=== PATIENT | female | born 1980 | race Caucasian/White ===

== ENCOUNTER 2019-11-17 09:46 | Emergency (ER) | payer SELFPAY ==
[2019-11-17 09:49] VITALS: BP 133/81; PULSE 87; RESP 20; TEMP 36.1; O2SAT 100
--- NOTE | 2019-11-17 10:51 | ED.GENADUL_ITS ---
Discharge Plan Disposition Patient Disposition: HOME Condition: Stable Discharge Details Chief Complaint: EyeProblem Clinical Impression: Allergic reaction Primary Care Provider: May Zavala ED Provider: Elizabeth Irizarry Home Meds and New Rx's Prescriptions: New prednisone 20 mg tablet 40 mg PO DAILY Qty: 10 RF: 0 No Action albuterol sulfate [ProAir HFA] 8.5 GM HFA aerosol inhaler 2 puff Inhalation PRN PRNRF: 0 dextroamphetamine-amphetamine [Adderall] 5 MG tablet 15 mg PO BID RF: 0 diphenhydramine HCl [Benadryl] 25 mg Capsule 25 mg PO Q6H PRNRF: 0 Discharge Instructions Instructions: General Allergic Reaction (ED) Additional Instructions: Frequently apply cool compresses or ice packs to your right eye. Continue Benadryl every 6 hours as discussed. Use steroids as discussed for the next 5 days. Keep head of bed elevated when sleeping to minimize swelling as discussed For any increase in swelling, development of any pain, development of any vision changes or blurred vision, purulent drainage from the eye or worsening symptoms have immediate return to the emergency room for consideration of antibiotics and further imaging. Call PCP for prompt recheck Return to the ER if symptoms persist without improvement for greater than 2 to 3 days Return for any worsening or concerns if needed sooner Medical Decision Making This is a 38-year-old patient who presents for right eye swelling. Patient reports onset of eyelid swelling noted yesterday which worsened today. Patient reports diffuse itching of the eyelids. She suspected a bug bite. Did start Benadryl yesterday with no significant relief. Did raise head of bed. Does report persistent swelling, itching and tearing. Denies any eye pain. See HPI for the remainder of details. Atraumatic Clinically patient appears to have diffuse eyelid swelling of both upper and lower lids of the right eye. Patient's conjunctiva appears normal. Patient has clear drainage from the eye. Patient has mild photophobia on exam which she reports is her baseline and unchanged. Patient has no pain with extraocular movements. Given patient's history and exam I suspect she has a local allergic reaction. Patient does have a chronic right ear infection however it does not seem that this chronic ear infection is not any worse at this time. She has no significant mastoiditis at this time. I do not feel these are communicating or related issues. Dr. Deleon also evaluated and saw this patient. Does not feel patient needs acute imaging at this time rather recommends treat for allergy. Strict return precautions. Inconsistent with orbital cellulitis at this time. Given patient's presentation will plan to treat appropriate for allergy in addition to ice packs, head of bed elevation and Benadryl will add prednisone x5 days. Strict precautions were discussed. Any alarming symptoms patient recommended return for more advanced imaging as well as antibiotic administration. Patient agrees with this plan of care. Her symptoms at this time are inconsistent with orbital cellulitis. No red flags at this time. We will plan to treat for allergy and return for worsening. Patient agrees. The patient was stable and requested discharge. Prior to discharge, my usual and customary return precautions were reviewed with the patient - this included follow-up instructions and reasons to return to the Emergency Department if conditions worsens, does not improve as expected, or other new concerns arise. HPI General Date/Time Provider Initiated Documentation: 11/17/19 09:54 . HPI Narrative: Is a 38-year-old patient presenting the emergency room for complaints of right eye swelling. Patient reports yesterday she noted an area on her upper eyelid that began swelling and was quite itchy. Patient suspected an insect bite. Patient reports today she awoke with increase in swelling of both the upper and lower lids. Patient reports she had been taking Benadryl with no significant relief. She had tried cool compresses with no significant relief. Patient describes itching to the eyelids. Does report tearing but no substantial eye pain. Denies any purulent drainage. Patient denies any fevers, chills, nausea, vomiting. No headache or dizziness. No systemic ill feeling. Patient denies any vision change, blurred vision or double vision. Mild light sensitivity noted at a baseline, seems unchanged. Patient denies any injury or trauma to the eye. No history of similar. Patient denies any other concerns or complaints. 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 Patient reports she has seen ENT for her ear abnormalities and require surgery which she has put off for approximately 10 years. Patient reports her ear seems unchanged. Patient does report mild swelling near the angle of her jaw. Able to eat and drink without difficulty. No sore throat. Denies any respiratory symptoms. No difficulty breathing or shortness of breath or wheezing. Negative Covid screening. Related Data Home Medications Medication Instructions Recorded Confirmed albuterol sulfate [ProAir HFA] 2 puff INHALATION PRN PRN 05/20/14 11/17/19 dextroamphetamine-amphetamine 15 mg PO BID 10/23/17 11/17/19 [Adderall] diphenhydramine HCl [Benadryl] 25 mg PO Q6H PRN 11/17/19 11/17/19 prednisone 40 mg PO DAILY #10 tab 11/17/19 Previous Rx's Medication Instructions Recorded prednisone 40 mg PO DAILY #10 tab 11/17/19 Allergies Allergy/AdvReac Type Severity Reaction Status Date / Time egg Allergy Intermediate Hives Unverified 11/17/19 09:53 General Stated Complaint: EyeProblem GIRMA: 4 Review of Systems All systems reviewed & are unremarkable except as noted in HPI and below PFSH Social History Smoking/Tobacco Use Status: Current every day Tobacco Type: cigarettes Alcohol Intake: current Alcohol Intake frequency: 3 or more drinks per day Drug use: Socially Substance use type: marijuana Do you feel safe at home: Yes Do you feel safe in your relationship?: Yes Exam Narrative Exam Narrative: CONST: Healthy appearing patient, in no acute distress. Well hydrated. Alert and oriented. HENMT: Head nomocephalic, normal to inspection. Atraumatic. Hearing grossly normal. Chronic right TM drainage. No obvious mastoiditis. No tenderness surrounding the ear. No trismus. EYES: General normal appearance. Alignment normal. Eyelids diffuse edematous, mild erythema. No lesions focally. Conjunctiva normal. Tearing. No purulent drainage. PERRLA with mild light sensitivity. No pain with extraocular movements. Extraocular movements are intact. Visual acuityL 20/30, R 20/20. NECK: Normal visual inspection. FROM. Trachea midline. No Midline tenderness. No lymphadenopathy CHEST: Normal insepection of the chest. RESP: Normal respiratory effort. Speaking full sentences. No cough. No audible wheezing. No retractions. CARDIO: No JVD. MUSCULOSKELETAL: Normal Gait. FROM of all extremities. SKIN: Normal. Dry. No rashes. NEURO: Alert and awake. Speech clear. PSYCH: Normal affect. Cooperative. Course Vital Signs Vital signs: Vital Signs Temperature 36.1 C L 11/17/19 09:49 Pulse 87 11/17/19 09:49 Respiratory Rate 20 11/17/19 09:49 Blood Pressure 133/81 11/17/19 09:49 Pulse Oximetry 100 11/17/19 09:49 Temperature 36.1 C L 11/17/19 09:49 Temperature Source Skin 11/17/19 09:49 Pulse 87 11/17/19 09:49 Respiratory Rate 20 11/17/19 09:49 Respiratory Effort Non-Labored 11/17/19 09:54 Blood Pressure 133/81 11/17/19 09:49 Blood Pressure Position Sitting 11/17/19 09:49 Pulse Oximetry 100 11/17/19 09:49 Oxygen Delivery Method Room Air 11/17/19 09:49 Oxygen Flow Rate 0 11/17/19 09:49
[2019-11-17 10:59] VITALS: BP 149/100; PULSE 90; RESP 18; TEMP 36.6; O2SAT 98
== END 2019-11-17 10:58 | disposition home or self-care (01) ==
PROVIDERS: Emergency Provider Physician Assistant; PCP Nurse Practitioner Family
DX: H02.844 Edema of left upper eyelid (principal); H02.845 Edema of left lower eyelid; T78.40XA Allergy, unspecified, initial encounter
CPT/HCPCS: 99283

== ENCOUNTER 2023-03-13 11:43 | Emergency (ER) | payer MEDICAID, SELFPAY ==
[2023-03-13 11:47] VITALS: BP 189/137; PULSE 120; RESP 20; TEMP 37; O2SAT 99
--- NOTE | 2023-03-13 12:14 | DI.US_ITS ---
Exam(s) US ABDOMEN LIMITED EXAM: US ABDOMEN LIMITED CLINICAL HISTORY: RUQ pain TECHNIQUE: Ultrasound abdomen performed using standard protocol. COMPARISON: No exams were available for comparison FINDINGS: PANCREAS: Cannot be visualized due to overlying bowel gas. LIVER: Liver is echogenic consistent with fatty infiltration. Due to patient body habitus portions o f the liver difficult to visualize. Hepatopedal flow in the Portal Vein. The liver measures in 25.9 cm length. GALLBLADDER: No evidence of cholelithiasis. No evidence of wall thickening. No pericholecystic fluid identified. BILIARY SYSTEM: Common bile duct measures < 7 mm. No intrahepatic biliary ductal dilation. BROTHERS'S SIGN: Negative. RIGHT KIDNEY: Kidney is normal in size. No evidence of renal calculi. No evidence of hydronephrosis. No renal mass or cyst identified. ASCITES: None seen. IMPRESSION: 1. Examination limited by patient body habitus and overlying bowel. 2. Hepatomegaly and hepatic steatosis. DATA REPOSITORY:
--- NOTE | 2023-03-13 12:17 | W.ED.GENAD ---
Discharge Plan Disposition Patient Disposition: Home Condition: Good Discharge Details Chief Complaint: Abd Prob Clinical Impression: Abdominal pain Primary Care Provider: May Zavala ED Provider: Angella Cain Home Meds and New Rx's Prescriptions: No Action albuterol sulfate [ProAir HFA] 8.5 GM HFA aerosol inhaler 2 puff Inhalation PRN PRN dextroamphetamine-amphetamine [Adderall] 5 MG tablet 15 mg PO BID diphenhydramine HCl [Benadryl] 25 mg Capsule 25 mg PO Q6H PRN prednisone 20 mg tablet 40 mg PO DAILY Qty: 10 0RF Discharge Instructions Instructions: Abdominal Pain (ED), Alcohol Withdrawal (ED) Additional Instructions: Take ibuprofen over the counter as needed for pain. Call your primary care doctor today to schedule an appointment within one week to follow up on your visit today. Return to the emergency department for new worsening symptoms including new/different/worse pain, vomiting, fever, jaundice, or if you are having symptoms of alchohol withdrawal. Referrals: May Zavala [Primary Care Provider] - Medical Decision Making 42yo F with ADHD, alchohol use disorder, presenting with epigastric and RUQ abdominal pain x 3-4 days, associated mild nausea, no vomiting. Heavy daily drinker, last drink 2 shots of rum ~2 hour prior to arrival. Hypertensive and tachycardiac on arrival, normotheric. Some RUQ tenderness on exam with no rebound or guarding, no epigastric tenderness and no lower abdominal tenderness. Lower suspicion for acute intrabdominal pathology though gallbladder is certainly possible culprit. Given toradol fo rpain. Labs reviewed as below, CBC with mild leukocytoiss, CMP with slight hypokalemia, AST of 60. Normal bilrubin. Not concerning for obstructive biliary pathology. No fevers suggest cholangitits. Mild lipase elevation not conisstent with pancreatitis. UA negative for infection (some RBCs, recent menstruation). Not concerned for pyelonephritis. RUQ with no CBD dilation or gallbladder wall thickening on my view; agree with radiology read below. On reassessment patient remains hypertrensive and tachycardia though does report pain is improved. States that her BP is often this high, unsure about heart rate. Suspect component of ETOH withdrawal; offered to assist with treatment/detox which Ms. Bernal declined, states she is not ready to quit at this time. Requests discharge home. I would prefer to treat her likely ETOH withdrawal however she is not interested in detox and would prefer to go home. Discharged home; discharge instructions including return precautions were reviewed with patient who verbalized understanding. All questions were answered and they are in full agreement with the plan. Imaging Data Radiologic Study: Imaging: Ultrasound Radiologist's impression: IMPRESSION: 1. Examination limited by patient body habitus and overlying bowel. 2. Hepatomegaly and hepatic steatosis.? Lab Data Lab results reviewed: Yes I reviewed the patient's lab results. Labs: Laboratory Tests Range/Units 03/13/23 03/13/23 03/13/23 12:00 12:00 12:53 WBC (4.4-10.8) 10^3/uL 11.69 H RBC (3.93-5.22) 10^6/uL 4.59 Hgb (11.2-15.7) g/dL 15.3 Hct (36.0-46.0) % 45.8 MCV (80-95) fL 100 H MCH (27.0-33.0) pg 33.3 H MCHC (32.0-36.0) % 33.4 RDW (11.7-14.6) % 11.8 Plt Count (130-400) 10^3/uL 259 MPV (8.0-11.0) fL 8.4 Immature Gran % 0.8 Neutrophils % 71.6 Lymphocytes % 20.2 Monocytes % 6.2 Eosinophils % 0.9 Basophils % 0.3 Nucleated RBC % (0.0-0.3) % 0.0 Absolute Neutrophils (1.2-6.7) 10^3/uL 8.37 H Absolute Lymphocytes (1.2-3.4) 10^3/uL 2.36 Absolute Monocytes (0.1-0.8) 10^3/uL 0.72 Absolute Eosinophils (0.0-0.7) 10^3/uL 0.11 Absolute Basophils (0.0-0.2) 10^3/uL 0.04 Sodium (136-145) mmol/L 136 Potassium (3.5-5.1) mmol/L 3.1 L Chloride (98-107) mmol/L 98 Carbon Dioxide (21.0-32.0) mmol/L 23.9 Anion Gap (3-11) mmol/L 14.1 H BUN (7-18) mg/dL 8 Creatinine (0.55-1.02) mg/dL 0.8 Est GFR (CKD-EPI 2020) (mL/min/1.73m2) 95.46 Glucose (74-106) mg/dL 125 H Calcium (8.5-10.1) mg/dL 9.8 Magnesium (1.8-2.4) mg/dL 1.9 Total Bilirubin (0.2-1.0) mg/dL 0.7 AST (15-37) U/L 60 H ALT (14-59) U/L 48 Alkaline Phosphatase (46-116) U/L 98 Total Protein (6.4-8.2) g/dL 8.5 H Albumin (3.4-5.0) g/dL 3.8 Lipase (16-77) U/L 200 H Beta HCG, Quant (1-3) mIU/mL < 1 L Urine Color (Yellow) Yellow Urine Clarity (Clear) Sl Cloudy Urine pH (5-8) 6.5 Ur Specific [place] (1.005-1.025) 1.025 Urine Protein (Negative) mg/dL 30 H Urine Ketones (Negative) mg/dL 40 H Urine Blood (Negative) Trace-intact H Urine Nitrite (Negative) Negative Urine Bilirubin (Negative) Small H Urine Urobilinogen (Up to 0.2) mg/dL 1.0 H Ur Leukocyte Esterase (Negative) Negative Urine RBC (0-2) HPF 3-5 H Urine WBC (0-5) HPF 0-2 Ur Epithelial Cells (Negative) HPF Many Urine Crystals (Negative) HPF Negative Urine Bacteria (Negative) HPF Few Urine Casts (Negative) LPF Negative Urine Mucus (Negative) Heavy Ur Culture Indicated? No/Sq. Contamination Urine Glucose (Negative) mg/dL Negative HPI General Mode of arrival: ambulatory. Date/Time Provider Initiated Documentation: 03/13/23 12:07. Limitations to Documentation: no limitations. Information obtained by: patient. HPI Narrative: 42yo F with ADHD, alchohol use disorder, presenting with epigastric and RUQ abdominal pain x 3-4 days. Has been persistent and worsening. Associated mild nausea, no vomiting. Symptoms started after eating a cheeseburger. Minimally improved by home tylenol. She is otherwise in her usual state of health with no fevers, chills, rash, lower abodminal pain, flank pain, dysuria, hematuria, back pain, constipation, diarrhea, dark/bloody stool, pale stool, or other concerns. Related Data Home Medications Medication Instructions Recorded Confirmed albuterol sulfate 90 mcg/actuation 2 puff inhalation PRN PRN 05/20/14 11/17/19 aerosol inhaler (ProAir HFA) dextroamphetamine-amphetamine 5 mg 15 mg PO BID 10/23/17 11/17/19 tablet (Adderall) diphenhydramine HCl 25 mg capsule 25 mg PO Q6H PRN 11/17/19 11/17/19 (Benadryl) prednisone 20 mg tablet 40 mg PO DAILY #10 tabs 11/17/19 Previous Rx's Medication Instructions Recorded prednisone 20 mg tablet 40 mg PO DAILY #10 tabs 11/17/19 Allergies Allergy/AdvReac Type Severity Reaction Status Date / Time egg Allergy Intermediate Hives Unverified 03/13/23 11:53 General Stated Complaint: Abd Prob GIRMA: 3 Review of Systems Narrative: see HPI PFSH All Active Problems (Updated 03/13/23 @ 14:39 by Angella Cain MD) Abdominal pain (Acute) Social History Smoking/Tobacco Use Status: Current every day Tobacco Type: cigarettes Smoking risk assessment performed?: Yes Alcohol Intake: current Alcohol Intake frequency: 3 or more drinks per day Drug use: Socially Substance use type: marijuana Do you feel safe at home: Yes Do you feel safe in your relationship?: Yes Exam Narrative Exam Narrative: General: Alert, well appearing, well nourished, in no acute distress. Head: Normocephalic, atraumatic Neck: Trachea midline, Neck supple. ENT: MMM. No oropharygeal lesions or exudate. Cardiac: RRR, no murmurs appreciated Resp: No respiratory distress. CTAB. Abd: Soft, non-distended, mild RUQ tenderness with no rebound or guarding. No epigastric tenderness. : No suprapubic tenderness. No CVA tenderness. Extremities: No deformities. No peripheral edema. Neurologic: GCS 15. Moves all extremities freely against gravity Course Vital Signs Vital signs: Vital Signs Temperature 37.0 C 03/13/23 11:47 Pulse 120 H 03/13/23 11:47 Respiratory Rate 20 03/13/23 11:47 Blood Pressure 189/137 H 03/13/23 11:47 Pulse Oximetry 99 03/13/23 11:47 Temperature 37.0 C 03/13/23 11:47 Temperature Source Oral 03/13/23 11:47 Pulse 120 H 03/13/23 11:47 Respiratory Rate 20 03/13/23 11:47 Respiratory Effort Normal 03/13/23 11:56 Blood Pressure 189/137 H 03/13/23 11:47 Blood Pressure Position Sitting 03/13/23 11:47 Pulse Oximetry 99 03/13/23 11:47 Oxygen Delivery Method Room Air 03/13/23 11:47 Oxygen Flow Rate 0 03/13/23 11:47 Pain Level 6 03/13/23 11:47 PAWSS Have you Been Recently Intoxicated or Drunk Within the Last 30 days?: Yes Have you Ever Experienced Previous Episodes of Alcohol Withdrawal?: No Have you ever Experienced Withdrawal Seizures?: No Have you ever Experienced Delirium Tremens(DT)s?: No Have you ever undergone Alcohol Rehabilitation Treatment (i.e, inpt ot outpatient treatment programs)?: No Have you ever Experienced Blackouts?: No Have you ever Combined Alcohol with other Downers within the last 90 days?: No Have you ever Combined Alcohol with any other Substance of Abuse during the last 90 days?: No Positive Blood Alcohol level on Presentation? [PCS.BAL]: No Evidence of Increased Autonomic Activity (i.e. HR>120, tremor, sweating, agitation, nausea)?: No Result: 1
[2023-03-13 12:24] LABS: Abs Immature Grans 0.09 10^3/uL (0.0-0.06); Absolute Basophil Count 0.04 10^3/uL (0.0-0.2); Absolute Eosinophil Count 0.11 10^3/uL (0.0-0.7); Absolute Lymphocyte Count 2.36 10^3/uL (1.2-3.4); Basophils % 0.3; Eosinophils % 0.9; HCT 45.8 % (36.0-46.0); HGB 15.3 g/dL (11.2-15.7); Immature Grans % 0.8; Lymphocytes % 20.2; MCH 33.3 pg (27.0-33.0); MCHC 33.4 % (32.0-36.0); MCV 100 fL (80-95); MPV 8.4 fL (8.0-11.0); Monocytes % 6.2; Neutrophils % 71.6; Platelet Count 259 10^3/uL (130-400); RBC 4.59 10^6/uL (3.93-5.22); RDW 11.8 % (11.7-14.6); RDW-SD 43.4 fL; WBC 11.69 10^3/uL (4.4-10.8)
[2023-03-13 12:32] LABS: Absolute Monocyte Count 0.72 10^3/uL (0.1-0.8); Absolute Neutrophil Count 8.37 10^3/uL (1.2-6.7)
[2023-03-13] MEDS: Ketorolac 15 MG/ML VIAL IVP (12:57)
[2023-03-13 12:59] LABS: ALT 48 U/L (14-59); AST 60 U/L (15-37); Albumin 3.8 g/dL (3.4-5.0); Alkaline Phosphatase 98 U/L (46-116); Anion Gap 14.1 mmol/L (3-11); BUN 8 mg/dL (7-18); Bilirubin, Total 0.7 mg/dL (0.2-1.0); CO2 23.9 mmol/L (21.0-32.0); CREATININE 0.8 mg/dL (0.55-1.02); Calcium 9.8 mg/dL (8.5-10.1); Chloride 98 mmol/L (98-107); Estimated GFR 95.46 (mL/min/1.73m2); Glucose 125 mg/dL (74-106); Lipase 200 U/L (16-77); Magnesium 1.9 mg/dL (1.8-2.4); Potassium 3.1 mmol/L (3.5-5.1); Sodium 136 mmol/L (136-145); Total Protein 8.5 g/dL (6.4-8.2)
[2023-03-13 13:00] LABS: HCG Quant, Pregnancy < 1 mIU/mL (1-3)
[2023-03-13 13:05] LABS: Bilirubin Small (Negative); Blood Trace-intact (Negative); Clarity Sl Cloudy (Clear); Glucose Negative (Negative); Ketones 40 mg/dL (Negative); Leukocyte Esterase Negative (Negative); Nitrite Negative (Negative); Specific Gravity 1.025 (1.005-1.025); pH 6.5 (5-8)
[2023-03-13 13:14] LABS: Bacteria Few HPF (Negative); Casts Negative LPF (Negative); Crystals Negative HPF (Negative); Epithelial Cells Many HPF (Negative); Mucus Heavy (Negative); WBC 0-2 HPF (0-5)
[2023-03-13 13:15] LABS: C & S Indicated? No/Sq. Contamination
[2023-03-13 14:11] VITALS: BP 170/120; PULSE 120; RESP 14; TEMP 36.2; O2SAT 98
== END 2023-03-13 14:42 | disposition home or self-care (01) ==
PROVIDERS: Emergency Provider Student in an Organized Health Care Education/Training Program; PCP Nurse Practitioner Family
DX: R10.11 Right upper quadrant pain; K76.0 Fatty (change of) liver, not elsewhere classified; R10.13 Epigastric pain; F17.200 Nicotine dependence, unspecified, uncomplicated; R00.0 Tachycardia, unspecified; F10.939 Alcohol use, unspecified with withdrawal, unspecified
CPT/HCPCS: 80053; 83690; 99285; 76705; 81003; 81015; 83735; 84702; 85025; 99284; J1885

== ENCOUNTER 2023-07-06 16:57 | Inpatient (IN) | payer MEDICAID, SELFPAY ==
[2023-07-06] VITALS (20 sets, daily range): BP systolic 176–198; BP diastolic 110–119; PULSE 61–125; RESP 8–33; TEMP 36.4–36.6; O2SAT 98
--- NOTE | 2023-07-06 17:11 | ED.GENADUL_ITS ---
HPI General Stated Complaint: ETOHWithdr Mode of arrival: ambulatory. GIRMA: 3 Date/Time Provider Initiated Documentation: 07/06/23 16:58. Limitations to Documentation: no limitations. Information obtained by: patient. History of Present Illness abdominal pain moderate aching No relieving factors improve symptom(s), No exacerbating factors reported nausea/vomiting; denies chest pain, fever/chills and shortness of breath none Related Data Home Medications Medication Instructions Recorded Confirmed albuterol sulfate 90 mcg/actuation 2 puff inhalation PRN PRN 05/20/14 07/06/23 aerosol inhaler (ProAir HFA) diphenhydramine HCl 25 mg capsule 25 mg PO Q6H PRN 11/17/19 07/06/23 (Benadryl) olmesartan 20 mg tablet 20 mg PO DAILY 07/06/23 07/06/23 Allergies Allergy/AdvReac Type Severity Reaction Status Date / Time egg Allergy Intermediate Hives Unverified 07/06/23 17:05 Review of Systems All systems reviewed & are unremarkable except as noted in HPI and below Constitutional Constitutional: Denies chills, Denies fever(s) and Denies weakness Cardiovascular Cardiovascular: Denies chest pain and Denies dyspnea Respiratory Respiratory: Denies cough and Denies dyspnea Gastrointestinal Gastrointestinal: Reports abdominal pain, Reports nausea and Reports vomiting Genitourinary Genitourinary: Denies dysuria Musculoskeletal Musculoskeletal: Denies joint swelling Integumentary/Breasts Skin/Breast: Denies rash Neurologic Neurologic: Denies weakness PFSH All Active Problems (Updated 07/06/23 @ 19:59 by Luis Alfredo Ibrahim MD) Acute pancreatitis (Acute) Social History Smoking/Tobacco Use Status: Current every day Tobacco Type: cigarettes Smoking risk assessment performed?: Yes Alcohol Intake: current Alcohol Intake frequency: 3 or more drinks per day Drug use: Socially Substance use type: marijuana Do you feel safe at home: Yes Do you feel safe in your relationship?: Yes Exam Const General: no acute distress Orientation: alert HENMT Head: normal to inspection Ears: external ears normal General nose exam: external nose normal Mouth: moist mucous membranes Eyes General: appearance normal, both eyes and all related structures Neck Neck: normal visual inspection Resp Effort & Inspection: normal respiratory effort and able to speak in complete sentences Auscultation: clear to auscultation bilaterally Cardio Jugular venous pressure: no JVD Rate: tachycardic Rhythm: regular rhythm Heart Sounds: no murmurs Skin General skin exam: no rashes or lesions noted Neuro General: patient alert and patient oriented x3 Extrem General: normal to inspection Psych Mental Status: mental status grossly normal Course Vital Signs Vital signs: Vital Signs Temperature 36.4 C L 07/06/23 17:01 Pulse 121 H 07/06/23 17:01 Respiratory Rate 18 07/06/23 17:01 Blood Pressure 198/112 H 07/06/23 17:01 Pulse Oximetry 98 07/06/23 17:01 Temperature 36.4 C L 07/06/23 17:01 Temperature Source Temporal Artery Scan 07/06/23 17:01 Pulse 121 H 07/06/23 17:01 Respiratory Rate 18 07/06/23 17:01 Blood Pressure 198/112 H 07/06/23 17:01 Pulse Oximetry 98 07/06/23 17:01 Pain Level 9 07/06/23 17:01 Medical Decision Making 42 yo female with hx of heavy alcohol use, states she drinks a lot of rum daily, comes in with abdominal pain, n/v similar to prior episodes of alcohol withdrawal she has had. She denies chest pain, dyspnea, fevers, chills. Does use marijuana otherwise denies drug use. She is hypertensive and tachycardic on arrival. She has a soft abdomen with tenderness throughout no guarding or rebound. Exam and history consistent with alcohol withdrawal, will obtain cbc, cmp, etoh level and lipase and give IV ativan and reassess. If no improvement will consider CT abd/pelvis though exam not consistent with surgical pathology at this time. lipase significantly elevated, she states she feels less anxious but still has abdominal pain, will proceed with ct abd/pelvis. UA nitrite positive, ceftriaxone ordered CT shows pancreatitis and possible pancreatic necrosis, pt stable still having abdominal pain, iv dilaudid ordered and will discuss with hospitalist about admission discussed with Dr Hall and requests 6mg/kg loading dose of phenobarbital given patient is high risk for withdrawals Differential Diagnosis Differential Diagnosis: alcohol withdrawal, pancreatitis Medical Records Medical records reviewed: Yes I reviewed the patient's medical records. Imaging Data Radiologic Study: Attestation: I personally reviewed and interpreted this imaging study as follows: Imaging: CT Scan Radiologist's impression: IMPRESSION: 1. There is peripancreatic fat stranding and fluid which extends down to the pelvis. Findings are most consistent with acute pancreatitis. There are areas of hypodensity in the pancreatic head/uncinate process, concerning for pancreatic necrosis. There is also stranding adjacent to the duodenum. An element of duodenitis is not excluded. 2. The internal contents of the urinary bladder measure greater than water density. Components of blood or infection are not excluded. 3. Hepatomegaly and hepatic steatosis. Other findings/details as above. Lab Data Lab results reviewed: Yes I reviewed the patient's lab results. Quality:[facility] Health Related Social Needs: No Data to Display Discharge Plan Disposition Patient Disposition: Admit to [facility] Condition: Serious Discharge Details Clinical Impression: Acute pancreatitis Primary Care Provider: Heather Hall ED Provider: Luis Alfredo Ibrahim Home Meds and New Rx's Prescriptions: No Action albuterol sulfate [ProAir HFA] 8.5 GM HFA aerosol inhaler 2 puff Inhalation PRN PRN olmesartan 20 mg tablet 20 mg PO DAILY Patient Comments: TAKE ONE TABLET BY MOUTH EVERY DAY diphenhydramine HCl [Benadryl] 25 mg Capsule 25 mg PO Q6H PRN
[2023-07-06 17:52] LABS: Abs Immature Grans 0.11 10^3/uL (0.0-0.06); Absolute Basophil Count 0.07 10^3/uL (0.0-0.2); Absolute Monocyte Count 0.82 10^3/uL (0.1-0.8); Basophils % 0.4; HCT 47.5 % (36.0-46.0); Immature Grans % 0.6; Lymphocytes % 6.5; MCHC 33.7 % (32.0-36.0); MCV 101 fL (80-95); MPV 8.6 fL (8.0-11.0); Monocytes % 4.8; Neutrophils % 87.7; Platelet Count 227 10^3/uL (130-400); RDW 11.7 % (11.7-14.6); RDW-SD 43.8 fL; WBC 16.99 10^3/uL (4.4-10.8)
[2023-07-06] MEDS: Normal Saline 1,000 ML 1000 ML IV (17:58)
[2023-07-06] MEDS: LORazepam 2 MG/ML VIAL IVP (17:58)
[2023-07-06 18:06] LABS: Lipase > 375 U/L (16-77); PTT Activated 23.7 sec (23.6-32.8)
[2023-07-06 18:09] LABS: ALT 46 U/L (14-59); AST 98 U/L (15-37); Albumin 3.4 g/dL (3.4-5.0); Alkaline Phosphatase 91 U/L (46-116); Anion Gap 14.3 mmol/L (3-11); BUN 7 mg/dL (7-18); Bilirubin, Total 0.9 mg/dL (0.2-1.0); CO2 22.7 mmol/L (21.0-32.0); CREATININE 0.8 mg/dL (0.55-1.02); Calcium 9.3 mg/dL (8.5-10.1); Chloride 100 mmol/L (98-107); ETHANOL BLOOD 32.8 mg/dL (<10); Estimated GFR 95.46 (mL/min/1.73m2); Glucose 143 mg/dL (74-106); Magnesium 1.7 mg/dL (1.8-2.4); Potassium 4.1 mmol/L (3.5-5.1); Sodium 137 mmol/L (136-145); Total Protein 7.8 g/dL (6.4-8.2)
[2023-07-06 18:11] LABS: HCG Qual (Serum) Negative
--- NOTE | 2023-07-06 18:15 | DI.CT_ITS ---
Exam(s) CT ABDOMEN PELVIS W EXAM: CT ABDOMEN PELVIS W CLINICAL HISTORY: abdominal pain, elevated lipase. TECHNIQUE: Imaging Protocol: Axial computed tomography images with coronal and sagittal reformatted images were created and reviewed CONTRAST MATERIAL: Intravenous: Omnipaque 350 Contrast volume:100 ml Oral: / no COMPARISON: No exams were available for comparison FINDINGS: ABDOMEN and PELVIS: Lung Bases: No acute findings. Liver: Enlarged. Moderate hepatic steatosis. No measurable mass. Gallbladder and biliary tract: No radiodense calculus or dilation. Pancreas: Marked surrounding inflammation consistent with pancreatitis. No visible pseudocyst. Smal l amount of surrounding fluid. No evidence of mass. Spleen: Normal. Kidneys: Normal size, contour and axis. No radiodense stones. No obstructive uropathy. No suspicious masses seen. Adrenal glands: No masses seen. Vasculature: Abdominal aorta non-dilated. Soft tissues: Unremarkable. Bladder: Not well evaluated, nearly empty. No gross wall thickening. No calculi.No focal mass. Bowel: No obstruction. No perforation. Mild inflammation of the duodenum adjacent to the head of t he pancreas. Appendix normal. Peritoneal cavity: Inflammation and small amount of fluid around the pancreas and extending along par acolic gutters. Small amount of fluid in pelvis. No free air. Bones: Unremarkable for age. Reproductive organs: Within normal limits. Lymph nodes: Mildly enlarged peripancreatic lymph nodes, likely reactive. IMPRESSION:: Severe pancreatitis. Secondary inflammation of the duodenum. RADIATION DOSE DELIVERED: 1,742.25mGy.cm Total DLP DATA REPOSITORY: All CT scans at this facility are submitted to the National Radiology Data Registry (NRDR) Dose Index Registry (DIR) with the [employer] (ACR). RADIATION OPTIMIZATION: All CT scans at this facility use at least one of these dose optimization te chniques: automated exposure control; mA and/or kV adjustment per patient size (includes targeted exa ms where dose is matched to clinical indication); or iterative reconstruction.
[2023-07-06] MEDS: HYDROmorphone 2 MG/ML SYR 1 MG IVP (18:20)
[2023-07-06 18:22] LABS: Bilirubin, Direct 0.2 mg/dL (0.0-0.2)
[2023-07-06 18:25] LABS: Bilirubin Small (Negative); Blood Negative (Negative); Clarity Clear (Clear); Glucose Negative (Negative); Ketones 40 mg/dL (Negative); Leukocyte Esterase Negative (Negative); Nitrite Positive (Negative); Specific Gravity >= 1.030 (1.005-1.025); Urobilinogen 0.2 mg/dL (Up to 0.2)
[2023-07-06 18:28] LABS: *AMPHETAMINES SCREEN URINE Negative (Negative); *BARBITURATES SCREEN URINE Negative (Negative); *BENZODIAZEPINES SCREEN URINE Negative (Negative); Cannabinoids THC Positive (Negative); Cocaine Screen,Urine Negative (Negative); METHADONE URINE SCREEN Negative (Negative); OPIATES URINE SCREEN Negative (Negative)
[2023-07-06 18:31] LABS: Tricyclic Antidepressants Negative (Negative)
[2023-07-06] MEDS: Omnipaque 350 MG/ML 100 ML BTL IJ (18:33)
[2023-07-06] MEDS: Normal Saline - Diluent 50 ML VIAL IJ (18:34)
[2023-07-06 18:35] LABS: Bacteria Few HPF (Negative); Epithelial Cells Many HPF (Negative); RBC 0-2 HPF (0-2)
[2023-07-06 18:36] LABS: C & S Indicated? No/Sq. Contamination; Crystals Negative HPF (Negative); Mucus Heavy (Negative)
[2023-07-06] MEDS: cefTRIAXone 2 GM/50 ML BAG IVPB (19:28)
--- NOTE | 2023-07-06 19:50 | DI.VRAD_ITS ---
Addendum created by Angella Alfaro MD on 07/06/2023 7:56:49 PM EST: THIS REPORT CONTAINS FINDINGS THAT MAY BE CRITICAL TO PATIENT CARE. The findings were verbally communicated via telephone conference with Luis Alfredo Ibrahim at 7:56 PM EST on 07/06/2023. The findings were acknowledged and understood. The patient is being admitted. Consider close interval follow-up. Initial report created on 07/06/2023 7:49:40 PM EST: PROCEDURE INFORMATION: Exam: CT Abdomen And Pelvis With Contrast Exam date and time: 07/06/2023 6:44 PM Age: 42 years old Clinical indication: Generalized; Patient HX: Abdominal pain, elevated lipase TECHNIQUE: Imaging protocol: Computed tomography of the abdomen and pelvis with contrast. COMPARISON: US ABDOMEN LIMITED 03/13/2023 12:25 PM FINDINGS: Lungs: There is atelectasis versus scarring at the lung bases. Liver: Hepatomegaly with the liver measuring 21.7 cm craniocaudally. There is hepatic steatosis. Gallbladder and bile ducts: Normal. No calcified stones. No ductal dilation. Pancreas: There is peripancreatic fat stranding and fluid which extends down to the pelvis. Findings are most consistent with acute pancreatitis. There are areas of hypodensity in the pancreatic head/uncinate process, concerning for pancreatic necrosis. There is also stranding adjacent to the duodenum. An element of duodenitis is not excluded. Spleen: Normal. No splenomegaly. Adrenal glands: Normal. No mass. Kidneys and ureters: Normal. No hydronephrosis. Stomach and bowel: See above. No obstruction. Appendix: No evidence of appendicitis. Intraperitoneal space: No free air. Vasculature: Unremarkable. No abdominal aortic aneurysm. Lymph nodes: There are prominent peripancreatic lymph nodes, likely reactive. Urinary bladder: The internal contents of the urinary bladder measure greater than water density. Components of blood or infection are not excluded. Reproductive: Unremarkable as visualized. Bones/joints: Sclerosis to the symphysis pubis. Skeletal degenerative changes. Sclerosis in the T8 vertebral body. In the absence of known malignancy, this most likely represents a bone island. No acute fracture identified. Soft tissues: Unremarkable. IMPRESSION: 1. There is peripancreatic fat stranding and fluid which extends down to the pelvis. Findings are most consistent with acute pancreatitis. There are areas of hypodensity in the pancreatic head/uncinate process, concerning for pancreatic necrosis. There is also stranding adjacent to the duodenum. An element of duodenitis is not excluded. 2. The internal contents of the urinary bladder measure greater than water density. Components of blood or infection are not excluded. 3. Hepatomegaly and hepatic steatosis. Other findings/details as above. Dictated and Authenticated by: Angella Alfaro MD. Ordering:EDGAR Lobato MD
--- NOTE | 2023-07-06 22:01 | HPE_ITS ---
Date of service: 07/06/23 Time of Service: 22:02 Assessment and Plan Assessment and plan (1) Acute pancreatitis: Status: Acute Assessment and plan: will get US of pancreas to clarify the hypodensities seen, will allow clear liquids as tolerated, give narcotic analgesics and Tylenol along w/ antiemetics, repeat lab in the morning including VBG, lactate, CMP and CBC. If she has worsening leukocytosis, fevers or increased abdominal pains then suspect infected necrosis and will broaden antibiotic coverage to include a carbapenem Qualifiers: Pancreatitis type: alcohol induced Acute pancreatitis complication: u ninfected necrosis Qualified Code(s): K85.21 - Alcohol induced acute pancreatitis with uninfected necrosis (2) Essential hypertension: Status: Acute Assessment and plan: patient BP brought down acutely w/ labetalol but have resumed her olmesartan and added norvasc (3) Alcoholism: Status: Acute Assessment and plan: phenobarbital protocol (4) UTI (urinary tract infection): Status: Acute Assessment and plan: check urine cultures, Rocephin 1 gm daily Qualifiers: Urinary tract infection type: acute cystitis Hematuria presence: w ithout hematuria Qualified Code(s): N30.00 - Acute cystitis without hematuria History of Present Illness History of Present Illness Chief Complaint: abdominal pains, nausea Narrative: 42 yr old female w/ hx of alcohol abuse (drinks several shots of Rum and drinks 3 to 4 beers per day) who presented w/ nausea and vomiting and epigasrtic pain. She thought that she might be going through withdrawal as she had gone w/out any alcohol the day prior to arrival as she was with her daughter in the emergency room for several hours. Workup in the E.D. included labs and abdominal CT that demonstrated acute pancreatitis. Lipase >375, CT concerning for peripancreatic fat stranding and some hypodensities in the uncinate and head of the pancreas that may represent some pancreatic necrosis. Labs were concerning for WBC 16,900 lipase >375, transaminases were relatively normal but her anion gap was elevated. Urinalysis was concerning for UTI. Patient was treated in the ED w/ iv fluids, antiemetics, dilaudid for her pain and Rocephin for her UTI. She was begun on phenobarbital protocol to prevent acute withdrawal. Patient has hx of HTN and states that she took her Olmesartan but then vomited it up. since admission her blood pressure has been out of control (which she says was not welll controlled before, necessitating titration of her olmesartan). Review of Systems All systems reviewed & are unremarkable except as noted in HPI and below PFSH All Active Problems (Updated 07/07/23 @ 02:01 by Irving Hall MD) UTI (urinary tract infection) (Acute) Alcoholism (Acute) Essential hypertension (Acute) Acute pancreatitis (Acute) Social History Smoking/Tobacco Use Status: Current every day Tobacco Type: cigarettes Smoking risk assessment performed?: Yes Alcohol Intake: current Alcohol Intake frequency: 3 or more drinks per day Drug use: Socially Substance use type: marijuana Housing: house Do you feel safe at home: Yes Do you feel safe in your relationship?: Yes Meds Allergies and Home Medications Allergies Allergy/AdvReac Type Severity Reaction Status Date / Time egg Allergy Intermediate Hives Unverified 07/06/23 17:05 Home Medications Medication Instructions Recorded Confirmed Type albuterol sulfate 90 mcg/actuation 2 puff inhalation PRN PRN 05/20/14 07/06/23 History aerosol inhaler (ProAir HFA) diphenhydramine HCl 25 mg capsule 25 mg PO Q6H PRN 11/17/19 07/06/23 History (Benadryl) olmesartan 20 mg tablet 20 mg PO DAILY 07/06/23 07/06/23 History Exam Narrative Exam Narrative: Obese white female who is lying in bed, at the time of my visit she was not having any appreciable abdominal pain HEENT: normal mucous membranes Neck: obese, short, no JVD normal carotid pulses Lungs: clear Heart: tachycardic but regular Abdomen: soft, nondistended, nontender to palpation, no guarding or rebound tenderness, no bruits or masses Legs: no cyanosis or edema Results Labs 07/06/23 17:40 07/06/23 17:40 Labs: Laboratory Results - last 24 hr 07/06/23 07/06/23 17:40 17:55 WBC 16.99 H RBC 4.70 Hgb 16.0 H Hct 47.5 H MCV 101 H MCH 34.0 H MCHC 33.7 RDW 11.7 Plt Count 227 MPV 8.6 Immature Gran % 0.6 Neutrophils % 87.7 Lymphocytes % 6.5 Monocytes % 4.8 Eosinophils % 0.0 Basophils % 0.4 Nucleated RBC % 0.0 Absolute Neutrophils 14.90 H Absolute Lymphocytes 1.10 L Absolute Monocytes 0.82 H Absolute Eosinophils 0.00 Absolute Basophils 0.07 PT 10.0 INR 1.0 APTT 23.7 Sodium 137 Potassium 4.1 Chloride 100 Carbon Dioxide 22.7 Anion Gap 14.3 H BUN 7 Creatinine 0.8 Est GFR (CKD-EPI 2020) 95.46 Glucose 143 H Calcium 9.3 Magnesium 1.7 L Total Bilirubin 0.9 Conjugated Bilirubin 0.2 AST 98 H ALT 46 Alkaline Phosphatase 91 Total Protein 7.8 Albumin 3.4 Lipase > 375 H Serum HCG, Qual Negative Urine Color Dark Yellow Urine Clarity Clear Urine pH 6.0 Ur Specific [place] >= 1.030 H Urine Protein 100 H Urine Ketones 40 H Urine Blood Negative Urine Nitrite Positive H Urine Bilirubin Small H Urine Urobilinogen 0.2 Ur Leukocyte Esterase Negative Urine RBC 0-2 Urine WBC 3-5 Ur Epithelial Cells Many Urine Crystals Negative Urine Bacteria Few Urine Mucus Heavy Ur Culture Indicated? No/Sq. Contamination Urine Glucose Negative Urine Opiates Screen Negative Urine Methadone Screen Negative Ur Barbiturates Screen Negative Ur Tricyclics Screen Negative Ur Amphetamines Screen Negative U Benzodiazepines Scrn Negative Urine Cocaine Screen Negative Ur THC Screen Positive A Ethyl Alcohol 32.8 H Last Vital Signs Temp 36.4 C L 07/06/23 17:01 Pulse 120 H 07/06/23 19:52 Resp 29 H 07/06/23 20:20 BP 177/110 H 07/06/23 19:52 Pulse Ox 98 07/06/23 17:01 PAWSS Have you Been Recently Intoxicated or Drunk Within the Last 30 days?: Yes Have you Ever Experienced Previous Episodes of Alcohol Withdrawal?: Yes Have you ever Experienced Withdrawal Seizures?: No Have you ever Experienced Delirium Tremens(DT)s?: Yes Have you ever undergone Alcohol Rehabilitation Treatment (i.e, inpt ot outpatient treatment programs)?: No Have you ever Experienced Blackouts?: No Have you ever Combined Alcohol with other Downers within the last 90 days?: No Have you ever Combined Alcohol with any other Substance of Abuse during the last 90 days?: Yes Positive Blood Alcohol level on Presentation? [PCS.BAL]: Unable to Obtain Evidence of Increased Autonomic Activity (i.e. HR>120, tremor, sweating, agitation, nausea)?: Yes Result: 6 Time Spent Time spent with Patient: 40-54 minutes Time was spent: preparing to see the patient(eg.review tests), ordering medications,tests, procedures, referring, communicating with other health career services assistant, indepentently interpreting results, counseling the patient and care coordination
[2023-07-06] MEDS: HYDROmorphone 2 MG/ML SYR IVP (22:24)
[2023-07-06] MEDS: Normal Saline Flush 10 ML SYR IVP (22:57)
[2023-07-06] MEDS: Lactated Ringers 1,000 ML 100 ML IV (22:59)
--- NOTE | 2023-07-06 23:40 | NUR.NOTE ---
Nursing Note: pt has high blood etetpqdr256/119, pulse 122, this was reported to the dr. charge reported that I am supposed to give the next dose of phenobarbitol now instead of 1am when it as scheduled for. pt is comfortable at this time.
[2023-07-07] VITALS (9 sets, daily range): BP systolic 143–186; BP diastolic 92–118; PULSE 98–122; RESP 18–26; TEMP 36.3–37.3; O2SAT 94–97
--- NOTE | 2023-07-07 | DI.US_ITS ---
Exam(s) US ABDOMEN EXAM: US ABDOMEN CLINICAL HISTORY: pancreatitis r/o developing necrosis TECHNIQUE: Ultrasound abdomen performed using standard protocol. COMPARISON: CT CT ABDOMEN PELVIS W from 07/06/2023 FINDINGS: Exam limited by patient body habitus peer LIVER: Enlarged at 22.7 cm in length. increased echogenicity and decreased through transmission con sistent with moderate to severe hepatic steatosis. Posterior portions of the liver cannot be visuali zed. No focal liver lesions are seen. GALLBLADDER: No evidence of cholelithiasis. No evidence of wall thickening. No pericholecystic fluid identified. BROTHERS'S SIGN: Negative. BILIARY SYSTEM: No intrahepatic or extrahepatic biliary ductal dilation. KIDNEYS: Not well visualized. Kidneys are symmetric in size. No gross evidence of renal calculi. No evidence of hydronephrosis. No 0 renal mass or cyst identified. PANCREAS: Poorly visualized. No visible fluid collection. SPLEEN: Not enlarged. ABDOMINAL AORTA AND IVC: Visualized portions normal caliber. ASCITES: None seen. IMPRESSION: Limited exam due to patient body habitus. Pancreas is poorly visualized. Hepatic steatosis. DATA REPOSITORY:
[2023-07-07] MEDS: ACETAMINOPHEN 1,000 MG/100 ML BTL 400 MG IVPB ×4 (00:16→18:02)
[2023-07-07] MEDS: Enoxaparin 40 MG/0.4 ML SYR SC (00:16)
[2023-07-07] MEDS: Labetalol 100 MG/20 ML VIAL 20 MG IVP (00:16)
[2023-07-07] MEDS: amLODIPine 5 MG TAB PO ×2 (00:25→07:39)
[2023-07-07] MEDS: HYDROmorphone 2 MG/ML SYR IVP ×4 (03:12→21:15)
[2023-07-07] MEDS: Pantoprazole 40 MG VIAL IVP ×2 (03:13→07:37)
[2023-07-07 06:23] LABS: Abs Immature Grans 0.15 10^3/uL (0.0-0.06); Absolute Basophil Count 0.08 10^3/uL (0.0-0.2); Absolute Eosinophil Count 0.05 10^3/uL (0.0-0.7); Absolute Lymphocyte Count 1.06 10^3/uL (1.2-3.4); Absolute Monocyte Count 0.85 10^3/uL (0.1-0.8); Absolute Neutrophil Count 12.96 10^3/uL (1.2-6.7); BE (Venous) 3 mmol/L (-2-3); Basophils % 0.5; Eosinophils % 0.3; HCO3 (Venous) 28 mmol/L (23-28); HCT 44.6 % (36.0-46.0); MCH 34.3 pg (27.0-33.0); MCHC 33.6 % (32.0-36.0); MCV 102 fL (80-95); MPV 8.2 fL (8.0-11.0); Monocytes % 5.6; Neutrophils % 85.6; O2 Sat (Venous) 76 %; Platelet Count 166 10^3/uL (130-400); RBC 4.37 10^6/uL (3.93-5.22); RDW-SD 45.4 fL; TCO2 (Venous) 25 mmol/L (24-29); WBC 15.14 10^3/uL (4.4-10.8); pCO2 (Venous) 45 mmHg (41-51); pH (Venous) 7.41 (7.31-7.41); pO2 (Venous) 41 mmHg
[2023-07-07 06:25] LABS: Lactate 1.4 mmol/L (0.6-1.4)
[2023-07-07 06:43] LABS: ALT 30 U/L (14-59); AST 43 U/L (15-37); Albumin 2.8 g/dL (3.4-5.0); Alkaline Phosphatase 79 U/L (46-116); BUN 7 mg/dL (7-18); CREATININE 0.8 mg/dL (0.55-1.02); Calcium 8.7 mg/dL (8.5-10.1); Chloride 97 mmol/L (98-107); Estimated GFR 95.46 (mL/min/1.73m2); Glucose 141 mg/dL (74-106); Magnesium 1.8 mg/dL (1.8-2.4); Potassium 4.2 mmol/L (3.5-5.1); Sodium 133 mmol/L (136-145); Total Protein 6.5 g/dL (6.4-8.2)
[2023-07-07 06:44] LABS: C-Reactive Protein 8.26 mg/dL (0.0-0.3); Calculated LDL 120 mg/dL (<100); Cholesterol 202 mg/dL (<200); HDL Cholesterol 69 mg/dL (40-60); Triglyceride 66 mg/dL (<150)
[2023-07-07 07:14] LABS: Procalcitonin 0.2 ng/mL
[2023-07-07] MEDS: Normal Saline Flush 10 ML SYR IVP ×3 (07:38→22:26)
--- NOTE | 2023-07-07 09:59 | PDOC.CMIN ---
Date of service: 07/07/23 Time of Service: 09:59 Care Management Initial Assmt Initial Assessment REASON FOR HOSPITALIZATION:: pancreatitis PREVIOUS FUNCTIONAL STATUS/SOCIAL/FAMILY SUPPORTS:: Shasta lives in a mobile home in [facility] with her 17 year old daughter Umm. She has been employed at [employer] for 9 years. Shasta is independent in the community and with ADLs and does not receive any community services. CURRENT FUNCTIONAL STATUS:: Shasta was sitting up in bed when CM met with her. She appeared to be uncomfortable and admitted that she was in pain. Shasta was admitted with pancreatitis and is currently on a clear liquid diet and is receiving analgesics as well as antiemetics. When asked, she stated that she has never worked with a assistant track and field coach and is not sure if she wants to. Currently she feels too ill to engage with a assistant track and field coach. ADVANCE DIRECTIVES:: says she has completed them but not on file at [facility]. Has patient been provided with info about the portal/API?: Yes Did the patient sign up for the portal?: No CODE STATUS:: Full Code INSURANCE COVERAGE / FINANCIAL ISSUES:: Medicaid CURRENT HOME/COMMUNITY SERVICES/EQUIPMENT:: none PRIMARY CARE PHYSICIAN:: Heather Hall POTENTIAL DISCHARGE NEEDS:: follow up with PCP and plan of care. Possible referral for ERIC. PATIENT/FAMILY EDUCATION NEEDS:: Review of discharge instructions, diet, activity, limitations, follow up plan and discuss [employer] TRANSPORTATION:: via private vehicle with family PLAN:: Anticipate Shasta will be discharged home with no new services. She will follow up with her community providers and plan of care and transport with family. CM will follow and continue to assess for discharge needs. PFSH All Active Problems (Updated 07/07/23 @ 17:31 by Halie Couch APRN) On deep vein thrombosis (DVT) prophylaxis (Acute) UTI (urinary tract infection) (Acute) Alcoholism (Acute) Essential hypertension (Acute) Acute pancreatitis (Acute) Social History Smoking/Tobacco Use Status: Current every day Tobacco Type: cigarettes Smoking risk assessment performed?: Yes Alcohol Intake: current Alcohol Intake frequency: 3 or more drinks per day Drug use: Socially Substance use type: marijuana Housing: house Do you feel safe at home: Yes Do you feel safe in your relationship?: Yes SDOH(Care Management) Screening Will the Patient Participate in the Screening?: Declined to provide
--- NOTE | 2023-07-07 10:26 | PGE_ITS ---
Date of Service Date of service: 07/07/23 Time of Service: 10:27 Assessment and Plan Assessment and plan (1) Acute pancreatitis: Status: Acute Assessment and plan: Continue IV hydration Continue pain management Abdominal ultrasound - no cholelithiasis. No cholecystic fluids no wall thickening of the gallbladder. -Hepatomegaly with severe steatosis with close visualization of the posterior portion of the liver; no focal lesions seen -Cortisol physician pancreas; no evidence of peripancreatic fluids. -No ascites Will continue clear liquids as tolerated, and progress with resolution of symptoms Continue narcotic analgesics and Tylenol Continue antiemetics, CBC mag and BMP in AM Qualifiers: Acute pancreatitis complication: uninfected necrosis Pancreatitis type: alcohol induced Qualified Code(s): K85.21 - Alcohol induced acute pancreatitis with uninfected necrosis (2) Essential hypertension: Status: Acute Assessment and plan: patient initially received labetalol for blood pressure controll Olmesartan ordered and pending supply Continue Norvasc started yesterday Patient on telemetry, sinus tachycardia as high as 120s intermittently throughout the day : As needed metoprolol IV for heart rate above 140 sustained over 20 minutes (3) Alcoholism: Status: Acute Assessment and plan: Continue phenobarbital protocol: Approximately 400 mg left DCM to reach soft limit. (4) UTI (urinary tract infection): Status: Acute Assessment and plan: Continue ceftriaxone, cultures are pending no growth at this time, no organism. Qualifiers: Hematuria presence: without hematuria Urinary tract infection type: acute cystitis Qualified Code(s): N30.00 - Acute cystitis without hematuria (5) On deep vein thrombosis (DVT) prophylaxis: Status: Acute Assessment and plan: On lovenox SC discussed with Dr. Fletcher Subjective Subjective Interval history since last seen: Reports abdominal pain well-controlled by ordered pain regimen. Patient denies vomiting but reports nausea, not passing flatus, no bowel movement today reports chills, no fever. Stating that she has been n.p.o. for and is looking forward to eating. Patient denies dysuria or history of constipation. The patient denies nicotine cravings, tremors, tingling and numbness to extremities, sensitivity to sounds but reports sensitivity to light. Plan of care discussed with patient and patient agreed. Exam Narrative Exam Narrative: Constitutional The patient is sitting in c in bed comfortable and cooperative during the interview. The patient is without acute distress except for abdominal tenderness on palpation, has obese body habitus. HENMT: Head is atraumatic, normocephalic, no lymphadenopathy. Facial structures with normal appearance Eyes: Well aligned, intact ROM Neck: Normal ROM, no meningeal signs Neuro:alert and oriented to self, person, place time and situation. No neurological focal deficit, PERRLA Chest:Chest is symmetrical and normal appearance Resp: Normal respiratory pattern, speaks in full sentences, unlabored breathing, clear lung bilaterally Cardio: regular rhythm, S1, S2, no murmur, capillary refill<3 sec., bilateral radial and dorsalis pedis pulses are positive, palpable GI: Abdomen is large, not distended, soft with diffuse tenderness to palpation to all 4 quadrants mostly the left upper abdominal quadrant.Bowel sounds are extremely diminished : Negative Costovertebral angle tenderness, no bladder distension Back/spine/Pelvis: No back tenderness, normal alignment Integumentary: No skin lesions or rash seen Extremities: strength 5/5 to bilateral lower and upper extremities Psych: RASS 0, congruent mood and normal affect. Objective Last Vital Signs Temp 36.7 C 07/07/23 07:31 Pulse 116 H 07/07/23 07:31 Resp 18 07/07/23 07:31 BP 158/116 H 07/07/23 07:31 Pulse Ox 97 07/07/23 07:31 Laboratory Results - last 24 hr 07/06/23 07/06/23 07/07/23 17:40 17:55 06:15 WBC 16.99 H 15.14 H RBC 4.70 4.37 Hgb 16.0 H 15.0 Hct 47.5 H 44.6 MCV 101 H 102 H MCH 34.0 H 34.3 H MCHC 33.7 33.6 RDW 11.7 12.0 Plt Count 227 166 MPV 8.6 8.2 Immature Gran % 0.6 1.0 Neutrophils % 87.7 85.6 Lymphocytes % 6.5 7.0 Monocytes % 4.8 5.6 Eosinophils % 0.0 0.3 Basophils % 0.4 0.5 Nucleated RBC % 0.0 0.0 Absolute Neutrophils 14.90 H 12.96 H Absolute Lymphocytes 1.10 L 1.06 L Absolute Monocytes 0.82 H 0.85 H Absolute Eosinophils 0.00 0.05 Absolute Basophils 0.07 0.08 PT 10.0 INR 1.0 APTT 23.7 VBG pH 7.41 VBG pCO2 45 VBG pO2 41 VBG HCO3 28 VBG Total CO2 25 VBG O2 Saturation 76 VBG Base Excess 3 VBG Lactate 1.4 Sodium 137 133 L Potassium 4.1 4.2 Chloride 100 97 L Carbon Dioxide 22.7 26.0 Anion Gap 14.3 H 10.0 BUN 7 7 Creatinine 0.8 0.8 Est GFR (CKD-EPI 2020) 95.46 95.46 Glucose 143 H 141 H Calcium 9.3 8.7 Magnesium 1.7 L 1.8 Total Bilirubin 0.9 1.0 Conjugated Bilirubin 0.2 AST 98 H 43 H ALT 46 30 Alkaline Phosphatase 91 79 C-Reactive Protein 8.26 H Total Protein 7.8 6.5 Albumin 3.4 2.8 L Triglycerides 66 Total Cholesterol 202 H LDL Cholesterol, Calc 120 H HDL Cholesterol 69 Lipase > 375 H Procalcitonin 0.2 Serum HCG, Qual Negative Urine Color Dark Yellow Urine Clarity Clear Urine pH 6.0 Ur Specific [place] >= 1.030 H Urine Protein 100 H Urine Ketones 40 H Urine Blood Negative Urine Nitrite Positive H Urine Bilirubin Small H Urine Urobilinogen 0.2 Ur Leukocyte Esterase Negative Urine RBC 0-2 Urine WBC 3-5 Ur Epithelial Cells Many Urine Crystals Negative Urine Bacteria Few Urine Mucus Heavy Ur Culture Indicated? No/Sq. Contamination Urine Glucose Negative Urine Opiates Screen Negative Urine Methadone Screen Negative Ur Barbiturates Screen Negative Ur Tricyclics Screen Negative Ur Amphetamines Screen Negative U Benzodiazepines Scrn Negative Urine Cocaine Screen Negative Ur THC Screen Positive A Ethyl Alcohol 32.8 H PAWSS Have you Been Recently Intoxicated or Drunk Within the Last 30 days?: Yes Have you Ever Experienced Previous Episodes of Alcohol Withdrawal?: Yes Have you ever Experienced Withdrawal Seizures?: Yes Have you ever Experienced Delirium Tremens(DT)s?: Yes Have you ever undergone Alcohol Rehabilitation Treatment (i.e, inpt ot outpatient treatment programs)?: No Have you ever Experienced Blackouts?: Yes Have you ever Combined Alcohol with other Downers within the last 90 days?: No Have you ever Combined Alcohol with any other Substance of Abuse during the last 90 days?: Yes Positive Blood Alcohol level on Presentation? [PCS.BAL]: Yes Evidence of Increased Autonomic Activity (i.e. HR>120, tremor, sweating, agitation, nausea)?: Yes Result: 9 Time Spent with Patient Time Spent with Patient: >50 minutes Time was spent: preparing to see the patient(eg.review tests), obtaining and/or reviewing separately otained hiistory, ordering medications,tests, procedures, referring, communicating with other health critical care physician, indepentently interpreting results, counseling the patient and care coordination
[2023-07-07 10:53] LABS: Lipase > 375 U/L (16-77)
[2023-07-07] MEDS: MULTIVITAMIN 10 ML, THIAMINE 100 MG, FOLIC ACID 1 MG in DEXTROSE 5%-0.45% SALINE 1,000 ML 42 ML IV (11:28)
--- NOTE | 2023-07-07 12:50 | PHA.REVIEW2 ---
Pharmacy Admission Review Admission Clinical Review Admission Pharmacy Review: (Updated 07/07/23 @ 02:01 by Irving Hall MD) UTI (urinary tract infection) (Acute) Alcoholism (Acute) Essential hypertension (Acute) Acute pancreatitis (Acute) egg Allergy (Intermediate, Unverified 07/06/23 17:05) Hives Resuscitation Status Full Code Height 5 ft 1.5 in Weight 124.738 kg Pharmacy Admission Review Renal Dosing Renal Dosing: BUN 7 mg/dL (7-18) 07/07/23 06:15 Creatinine 0.8 mg/dL (0.55-1.02) 07/07/23 06:15 Medications needing adjustments: Reviewed (CrCl 116.97 mL/min ) Anticoagulation Anticoagulation: Hgb 15.0 g/dL (11.2-15.7) 07/07/23 06:15 Hct 44.6 % (36.0-46.0) 07/07/23 06:15 Plt Count 166 10^3/uL (130-400) 07/07/23 06:15 INR 1.0 (0.9-1.1) 07/06/23 17:40 Creatinine 0.8 mg/dL (0.55-1.02) 07/07/23 06:15 DVT Prophylaxis: Reviewed Medications: Enoxaparin (40mg q24h) Relevant Labs Relevant Labs: Sodium 133 mmol/L (136-145) L 07/07/23 06:15 Potassium 4.2 mmol/L (3.5-5.1) 07/07/23 06:15 Chloride 97 mmol/L (98-107) L 07/07/23 06:15 Magnesium 1.8 mg/dL (1.8-2.4) 07/07/23 06:15 C-Reactive Protein 8.26 mg/dL (0.0-0.3) H 07/07/23 06:15 Electrolytes, C-Reactive P, ESR: Reviewed (Na 133) Cardiac Review Cardiac Review: Blood Pressure 164/106 1136 Blood Pressure 158/116 0731 Blood Pressure 156/104 0212 BP, HR, EF%: Reviewed (BP 164/106, HR 120, LDL 120, Lipase > 375) QTc Review QTc: N/A (No EKG on file) IV to PO Switch IV Medications: Reviewed Home Meds Home Med List reviewed: Intervened Relevent Home Meds Not ordered & why?: Order for olmesartan currently not verified. It is non-formulary, called nursing to ask patient if this could be brought in from home. Patient told nursing that she does not take it, but looks like it was filled at end of April for 90 DS. Reached out to provider who is going to check in with patient. Leaving unverified for now. Current Meds Current Medication Order Review: Reviewed Comments: Phenobarbital for alcohol withdrawal: Soft stop: 734.25mg Hard stop: 979mg Currently has received 300mg total. Last CIWA was 3 at 1132 today. Pharmacy Antibiotic Review Relevant Labs: Relevant Labs 07/07/23 06:15 C-Reactive Protein 8.26 H Procalcitonin 0.2 Pharmacy Antibiotic Activity: C/S review and Reviewed, no change Comments: Current regimen is ceftriaxone 1g q24h. WBC down from 16.99 to 15.14. Urine cultures pending.
[2023-07-07] MEDS: Prochlorperazine 10 MG/2 ML VIAL 5 MG IVP (13:17)
[2023-07-07] MEDS: Normal Saline 1,000 ML 125 ML IV (13:19)
--- NOTE | 2023-07-07 18:23 | NUR.NOTE ---
Nursing Note: Halie Couch TAILER OFF is aware of patient's hypertension, and instructed to notify if both systolic is over 180 and diastolic is over 110, or if patient becomes symptomatic. Patient is not symptomatic. Will continue to monitor. JOSÉ MIGUEL Couch also directed this RN to give phenobarbital for tachycardia. Given as directed.
[2023-07-07] MEDS: cefTRIAXone 1 GM/50 ML BAG IVPB (18:35)
[2023-07-08] VITALS (14 sets, daily range): BP systolic 126–163; BP diastolic 74–112; PULSE 110–135; RESP 16–20; TEMP 36.3–37.7; O2SAT 93–98
--- NOTE | 2023-07-08 00:42 | NUR.NOTE ---
Nursing Note: pt woke up a bit confused tonight. refused some medications, citing that they do not work. i think this may be because she was in a deep sleep.
[2023-07-08] MEDS: Prochlorperazine 10 MG/2 ML VIAL 5 MG IVP (01:43)
[2023-07-08] MEDS: HYDROmorphone 2 MG/ML SYR IVP ×3 (06:31→16:56)
[2023-07-08 06:54] LABS: Abs Immature Grans 0.54 10^3/uL (0.0-0.06); Absolute Eosinophil Count 0.02 10^3/uL (0.0-0.7); Basophils % 0.5; Eosinophils % 0.1; HCT 40.4 % (36.0-46.0); HGB 13.6 g/dL (11.2-15.7); Immature Grans % 2.5; Lymphocytes % 5.1; MCH 34.9 pg (27.0-33.0); MCHC 33.7 % (32.0-36.0); MCV 104 fL (80-95); MPV 8.8 fL (8.0-11.0); Monocytes % 6.6; Neutrophils % 85.2; Platelet Count 168 10^3/uL (130-400); RDW-SD 46.5 fL; WBC 21.36 10^3/uL (4.4-10.8)
[2023-07-08 07:00] LABS: Absolute Basophil Count 0.11 10^3/uL (0.0-0.2); Absolute Lymphocyte Count 1.09 10^3/uL (1.2-3.4); Absolute Monocyte Count 1.41 10^3/uL (0.1-0.8)
[2023-07-08 07:06] LABS: Anion Gap 6.7 mmol/L (3-11); BUN 3 mg/dL (7-18); CO2 29.3 mmol/L (21.0-32.0); CREATININE 0.8 mg/dL (0.55-1.02); Calcium 8.6 mg/dL (8.5-10.1); Chloride 94 mmol/L (98-107); Estimated GFR 95.46 (mL/min/1.73m2); Glucose 135 mg/dL (74-106); Magnesium 1.7 mg/dL (1.8-2.4); Potassium 4.2 mmol/L (3.5-5.1); Sodium 130 mmol/L (136-145)
[2023-07-08 07:24] LABS: Diff Comment Diff Reviewed; RBC Morphology Normal
[2023-07-08] MEDS: amLODIPine 5 MG TAB PO (08:33)
[2023-07-08] MEDS: Pantoprazole 40 MG VIAL IVP (08:33)
[2023-07-08] MEDS: Normal Saline Flush 10 ML SYR IVP ×6 (08:34→20:18)
--- NOTE | 2023-07-08 08:53 | PDOC.CMPRO ---
Date of service: 07/08/23 Time of Service: 08:53 Care Management Progress Note Progress Note Text Progress Note Text: S/O: Shasta was sitting up on the edge of her bed, visiting with her best friend and daughter. She stated that she has been trying to have a bowel movement today, and hopes that her diet will be advanced by tomorrow so that she can return home. She is happy with her care at [facility]. CM will continue to follow. A: Shasta is a 42 year old female admitted to [facility] on 07/06/23 for pancreatitis. P: Anticipate Shasta will be discharged home with no new services. She will follow up with her community providers and plan of care and transport with family. CM will follow and continue to assess for discharge needs.
--- NOTE | 2023-07-08 10:12 | W.PM.PROGNOT ---
Date of Service Date of service: 07/08/23 Time of Service: 10:12 Assessment and Plan Assessment and plan (1) Acute pancreatitis: Status: Acute Assessment and plan: Continue IV hydration discontinue Continue pain management Abdominal ultrasound on 07/07: no cholelithiasis, cholecystic fluids, wall thickening of the gallbladder. positive for Hepatomegaly with severe steatosis with close visualization of the posterior portion of the liver; no focal lesions seen poorly [id number] pancreas; no evidence of fluid collection -No ascites Continue clear liquids as patient had minimal intake at lunch, will erevaluate in AM for diet progression Continue narcotic analgesics w reduced frequency and scheduled Tylenol Continue antiemetics as needed, CBC mag and BMP in AM Qualifiers: Acute pancreatitis complication: uninfected necrosis Pancreatitis type: alcohol induced Qualified Code(s): K85.21 - Alcohol induced acute pancreatitis with uninfected necrosis (2) Essential hypertension: Status: Acute Assessment and plan: Continue Olmesartan, norvasc, PRN IV metoprolol Norvasc added for hypertensive urgency Patient on telemetry, sinus tachycardia as high as 120s intermittently throughout the day : Initially started on 2.5 metoprolol IV for heart rate 130s sustained w/o noticeable results. PRN metoprolol with parameters HR >140 sustained still ordered but asking staff to give phenobarbital; HR has been in th 110's after pheno. as needed as needed metoprolol IV for heart rate above 140 sustained over 20 minutes Initially received labetalol in the emergency room PRN order d/c'ed (3) Alcoholism: Status: Acute Assessment and plan: Continue phenobarbital protocol: Approximately 200 mg left to reach soft limit. Oral thiamine and folic acid IVF with MVI, thiamine and folic acid completed (4) UTI (urinary tract infection): Status: Acute Assessment and plan: Initially on ceftriaxone, gram-positive mile in urine culture today, starting patient on Bactrim Stop ceftriaxone Qualifiers: Hematuria presence: without hematuria Urinary tract infection type: acute cystitis Qualified Code(s): N30.00 - Acute cystitis without hematuria (5) On deep vein thrombosis (DVT) prophylaxis: Status: Acute Assessment and plan: Continue lovenox SC discussed with Dr. Fletcher (6) Insomnia: Status: Acute Assessment and plan: Initiating melatonin 3 mg PO HS Subjective Subjective Interval history since last seen: Patient reports sleeping poorly, she usually works at the night and suffers from insomnia here. Patient reports tolerating fluids well, diffuse abdominal pain and mostly to the left upper quadrant, reports no flatus, 1 episode of nausea and nausea last night but not since breakfast, no bowel movement, no dysuria. The patient also denies lightheadedness, chills, or fever. The patient reports that pain is less. Exam Narrative Exam Narrative: Constitutional The patient is sitting on the bed without acute distress HENMT:Facial structures with normal appearance Eyes: Well aligned with intact ROM Neck: Normal ROM Neuro:alert and oriented to self, person, place time and situation. No neurological focal deficit, no tremors, no paresthesia Chest:Chest is symmetrical and normal appearance Resp: Normal respiratory pattern, speaks in full sentences, unlabored breathing, clear lung bilaterally Cardio: regular rhythm, S1, S2, no murmur, capillary refill<3 sec., bilateral radial and dorsalis pedis pulses are positive, palpable GI: Abdomen is large, not distended, soft with diffuse tenderness to palpation to all 4 quadrants mostly the left upper abdominal quadrant.Bowel sounds are extremely diminished : Negative Costovertebral angle tenderness, no bladder distension Back/spine/Pelvis: No back tenderness, normal alignment Integumentary: No skin lesions or rash seen Extremities: strength 5/5 to bilateral lower and upper extremities Psych: RASS 0, congruent mood and normal affect. Objective Last Vital Signs Temp 37.4 C 07/08/23 07:31 Pulse 130 H 07/08/23 07:31 Resp 18 07/08/23 07:31 BP 163/97 H 07/08/23 07:31 Pulse Ox 96 07/08/23 07:31 Laboratory Results - last 24 hr 07/07/23 07/08/23 06:15 06:16 WBC 21.36 H RBC 3.90 L Hgb 13.6 Hct 40.4 MCV 104 H MCH 34.9 H MCHC 33.7 RDW 12.0 Plt Count 168 MPV 8.8 Immature Gran % 2.5 Neutrophils % 85.2 Lymphocytes % 5.1 Monocytes % 6.6 Eosinophils % 0.1 Basophils % 0.5 Nucleated RBC % 0.0 Absolute Neutrophils 18.20 H Absolute Lymphocytes 1.09 L Absolute Monocytes 1.41 H Absolute Eosinophils 0.02 Absolute Basophils 0.11 RBC Morphology Normal Sodium 130 L Potassium 4.2 Chloride 94 L Carbon Dioxide 29.3 Anion Gap 6.7 BUN 3 L Creatinine 0.8 Est GFR (CKD-EPI 2020) 95.46 Glucose 135 H Calcium 8.6 Magnesium 1.7 L Lipase > 375 H PAWSS Have you Been Recently Intoxicated or Drunk Within the Last 30 days?: Yes Have you Ever Experienced Previous Episodes of Alcohol Withdrawal?: Yes Have you ever Experienced Withdrawal Seizures?: Yes Have you ever Experienced Delirium Tremens(DT)s?: Yes Have you ever undergone Alcohol Rehabilitation Treatment (i.e, inpt ot outpatient treatment programs)?: No Have you ever Experienced Blackouts?: Yes Have you ever Combined Alcohol with other Downers within the last 90 days?: No Have you ever Combined Alcohol with any other Substance of Abuse during the last 90 days?: Yes Positive Blood Alcohol level on Presentation? [PCS.BAL]: Yes Evidence of Increased Autonomic Activity (i.e. HR>120, tremor, sweating, agitation, nausea)?: Yes Result: 9 Time Spent with Patient Time Spent with Patient: >50 minutes Time was spent: preparing to see the patient(eg.review tests), ordering medications,tests, procedures, referring, communicating with other health childcare center administrator, indepentently interpreting results, counseling the patient and care coordination
[2023-07-08] MEDS: Sulfameth/Trimeth DS TAB 1 TAB PO ×2 (10:56→20:17)
[2023-07-08] MEDS: Metoprolol 5 MG/5 ML VIAL 2.5 MG IVP (11:06)
[2023-07-08] MEDS: MULTIVITAMIN 10 ML, THIAMINE 100 MG, FOLIC ACID 1 MG in DEXTROSE 5%-0.45% SALINE 1,000 ML 42 ML IV (11:16)
[2023-07-08] MEDS: Acetaminophen 500 MG TAB 1000 MG PO ×2 (13:01→20:17)
[2023-07-08] MEDS: Bisacodyl 10 MG SUPP PR (13:55)
--- NOTE | 2023-07-08 15:46 | NUTRITION ---
Kari and I know each other from outside the hospital. She works at [employer], the overnight shift, [employer]. She said she likes working alone. She told me she's having trouble with her spleen, and it's been very painful. She is starting to feel better she said. I explained my role and offered support.
[2023-07-08] MEDS: Enoxaparin 40 MG/0.4 ML SYR SC (23:42)
[2023-07-08] MEDS: Melatonin 3 MG TAB PO (23:42)
[2023-07-09 03:25] VITALS: BP 130/84; PULSE 118; RESP 19; TEMP 37.5; O2SAT 98
[2023-07-09] MEDS: Acetaminophen 500 MG TAB 1000 MG PO ×3 (04:06→19:48)
[2023-07-09 06:24] LABS: Abs Immature Grans 0.16 10^3/uL (0.0-0.06); Absolute Basophil Count 0.07 10^3/uL (0.0-0.2); Absolute Eosinophil Count 0.06 10^3/uL (0.0-0.7); Absolute Lymphocyte Count 1.21 10^3/uL (1.2-3.4); Absolute Neutrophil Count 11.64 10^3/uL (1.2-6.7); Basophils % 0.5; Eosinophils % 0.4; HCT 37.4 % (36.0-46.0); HGB 12.5 g/dL (11.2-15.7); Immature Grans % 1.1; Lymphocytes % 8.6; MCH 34.7 pg (27.0-33.0); MCHC 33.4 % (32.0-36.0); MCV 104 fL (80-95); MPV 8.8 fL (8.0-11.0); Monocytes % 6.4; Platelet Count 144 10^3/uL (130-400); RDW-SD 46.5 fL; WBC 14.02 10^3/uL (4.4-10.8)
[2023-07-09 06:34] LABS: Anion Gap 9.8 mmol/L (3-11); BUN 6 mg/dL (7-18); CO2 27.2 mmol/L (21.0-32.0); CREATININE 0.7 mg/dL (0.55-1.02); Calcium 8.7 mg/dL (8.5-10.1); Chloride 98 mmol/L (98-107); Estimated GFR 112.05 (mL/min/1.73m2); Glucose 128 mg/dL (74-106); Magnesium 2.2 mg/dL (1.8-2.4); Potassium 3.9 mmol/L (3.5-5.1); Sodium 135 mmol/L (136-145)
[2023-07-09 07:36] VITALS: BP 127/87; PULSE 111; RESP 18; TEMP 37.1; O2SAT 98
[2023-07-09] MEDS: HYDROmorphone 2 MG/ML SYR IVP ×3 (08:15→18:39)
[2023-07-09] MEDS: Pantoprazole 40 MG VIAL IVP (08:16)
[2023-07-09] MEDS: Normal Saline Flush 10 ML SYR IVP ×4 (08:16→19:49)
[2023-07-09] MEDS: Thiamine 100 MG TAB PO (08:17)
[2023-07-09] MEDS: Sulfameth/Trimeth DS TAB 1 TAB PO ×2 (08:17→19:49)
[2023-07-09] MEDS: Folic Acid 1 MG TAB PO (08:17)
[2023-07-09] MEDS: amLODIPine 5 MG TAB PO (08:17)
--- NOTE | 2023-07-09 10:27 | CMPROGNOTE_ITS ---
Date of service: 07/09/23 Time of Service: 10:27 Care Management Progress Note Progress Note Text Progress Note Text: S/O: Shasta was sitting up on the edge of her bed when CM met with her. She was pleasant and smiling and stated that she is feeling a lot better. Her pain is well controlled with medication and she has been tolerating a clear liquid diet. Shasta did state that she is hungry and hopes to have her diet advanced today. She denied vomiting but did share that she becomes nauseated a couple of times a day. Shasta's CIWA scores have been low, 0-1. She has received phenobarbital twice today and 3 times yesterday, as she remains tachycardic. A: Shasta is a 42 year old female admitted to [facility] on 07/06/23 for pancreatitis. P: Anticipate Shasta will be discharged home with no new services. She will follow up with her community providers and plan of care and transport with family. CM will follow and continue to assess for discharge needs.
--- NOTE | 2023-07-09 11:13 | W.PM.PROGNOT ---
Date of Service Date of service: 07/09/23 Time of Service: 11:13 Assessment and Plan Assessment and plan (1) Acute pancreatitis: Status: Acute Assessment and plan: Doing well with clear liquids, c/o hunger - adv diet as talha Continue pain management Continue narcotic analgesics w reduced frequency and scheduled Tylenol Continue antiemetics as needed Qualifiers: Acute pancreatitis complication: uninfected necrosis Pancreatitis type: alcohol induced Qualified Code(s): K85.21 - Alcohol induced acute pancreatitis with uninfected necrosis (2) Essential hypertension: Status: Acute Assessment and plan: Continue Olmesartan, norvasc, PRN IV metoprolol Monitor (3) Alcoholism: Status: Acute Assessment and plan: Continue phenobarbital protocol: Approximately 200 mg left to reach soft limit. Oral thiamine and folic acid (4) UTI (urinary tract infection): Status: Ruled-out Assessment and plan: Continue bactrim Qualifiers: Hematuria presence: without hematuria Urinary tract infection type: acute cystitis Qualified Code(s): N30.00 - Acute cystitis without hematuria (5) On deep vein thrombosis (DVT) prophylaxis: Status: Acute Assessment and plan: Continue lovenox SC discussed with Dr. 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 lying in bed, pleasant, conversant HEENT: normal mucous membranes Neck: obese, short, no JVD normal carotid pulses Lungs: clear Heart: tachycardic but regular Abdomen: soft, nondistended, nontender to palpation, no guarding or rebound tenderness, no bruits or masses Legs: no cyanosis or edema Objective Last Vital Signs Temp 37.1 C 07/09/23 07:36 Pulse 111 H 07/09/23 07:36 Resp 18 07/09/23 07:36 BP 127/87 07/09/23 07:36 Pulse Ox 98 07/09/23 07:36 Laboratory Results - last 24 hr 07/09/23 06:15 WBC 14.02 H RBC 3.60 L Hgb 12.5 Hct 37.4 MCV 104 H MCH 34.7 H MCHC 33.4 RDW 12.0 Plt Count 144 MPV 8.8 Immature Gran % 1.1 Neutrophils % 83.0 Lymphocytes % 8.6 Monocytes % 6.4 Eosinophils % 0.4 Basophils % 0.5 Nucleated RBC % 0.0 Absolute Neutrophils 11.64 H Absolute Lymphocytes 1.21 Absolute Monocytes 0.90 H Absolute Eosinophils 0.06 Absolute Basophils 0.07 Sodium 135 L Potassium 3.9 Chloride 98 Carbon Dioxide 27.2 Anion Gap 9.8 BUN 6 L Creatinine 0.7 Est GFR (CKD-EPI 2020) 112.05 Glucose 128 H Calcium 8.7 Magnesium 2.2 PAWSS Have you Been Recently Intoxicated or Drunk Within the Last 30 days?: Yes Have you Ever Experienced Previous Episodes of Alcohol Withdrawal?: Yes Have you ever Experienced Withdrawal Seizures?: Yes Have you ever Experienced Delirium Tremens(DT)s?: Yes Have you ever undergone Alcohol Rehabilitation Treatment (i.e, inpt ot outpatient treatment programs)?: No Have you ever Experienced Blackouts?: Yes Have you ever Combined Alcohol with other Downers within the last 90 days?: No Have you ever Combined Alcohol with any other Substance of Abuse during the last 90 days?: Yes Positive Blood Alcohol level on Presentation? [PCS.BAL]: Yes Evidence of Increased Autonomic Activity (i.e. HR>120, tremor, sweating, agitation, nausea)?: Yes Result: 9 Time Spent with Patient Time Spent with Patient: 25-34 minutes Time was spent: preparing to see the patient(eg.review tests), ordering medications,tests, procedures, indepentently interpreting results, counseling the patient and care coordination
[2023-07-09 11:30] VITALS: BP 121/70; PULSE 113; RESP 18; TEMP 35.4; O2SAT 98
[2023-07-09 15:40] VITALS: BP 127/80; PULSE 108; RESP 16; TEMP 36.3; O2SAT 98
[2023-07-09] MEDS: Prochlorperazine 10 MG/2 ML VIAL 5 MG IVP (18:39)
[2023-07-09 19:13] VITALS: BP 110/67; PULSE 109; RESP 17; TEMP 36.4; O2SAT 98
[2023-07-09] MEDS: Melatonin 3 MG TAB PO (23:23)
[2023-07-09] MEDS: Enoxaparin 40 MG/0.4 ML SYR SC (23:23)
[2023-07-10 03:38] VITALS: BP 108/71; PULSE 98; RESP 16; TEMP 36.4; O2SAT 95
[2023-07-10] MEDS: Acetaminophen 500 MG TAB 1000 MG PO ×2 (04:21→11:50)
[2023-07-10 06:24] LABS: Abs Immature Grans 0.19 10^3/uL (0.0-0.06); Absolute Basophil Count 0.06 10^3/uL (0.0-0.2); Absolute Eosinophil Count 0.07 10^3/uL (0.0-0.7); Absolute Lymphocyte Count 1.19 10^3/uL (1.2-3.4); Absolute Monocyte Count 0.72 10^3/uL (0.1-0.8); Absolute Neutrophil Count 8.05 10^3/uL (1.2-6.7); Basophils % 0.6; Eosinophils % 0.7; HGB 12.4 g/dL (11.2-15.7); Immature Grans % 1.8; Lymphocytes % 11.6; MCH 35.2 pg (27.0-33.0); MCHC 33.5 % (32.0-36.0); MCV 105 fL (80-95); MPV 8.9 fL (8.0-11.0); Neutrophils % 78.3; Platelet Count 189 10^3/uL (130-400); RBC 3.52 10^6/uL (3.93-5.22); RDW-SD 46.4 fL; WBC 10.28 10^3/uL (4.4-10.8)
[2023-07-10 06:35] LABS: Anion Gap 7.7 mmol/L (3-11); BUN 8 mg/dL (7-18); CO2 27.3 mmol/L (21.0-32.0); CREATININE 0.8 mg/dL (0.55-1.02); Calcium 8.4 mg/dL (8.5-10.1); Chloride 98 mmol/L (98-107); Estimated GFR 95.46 (mL/min/1.73m2); Glucose 116 mg/dL (74-106); Magnesium 2.3 mg/dL (1.8-2.4); Potassium 3.6 mmol/L (3.5-5.1); Sodium 133 mmol/L (136-145)
[2023-07-10] MEDS: HYDROmorphone 2 MG/ML SYR IVP (07:44)
[2023-07-10] MEDS: Sulfameth/Trimeth DS TAB 1 TAB PO (07:49)
[2023-07-10] MEDS: Folic Acid 1 MG TAB PO (07:50)
[2023-07-10] MEDS: amLODIPine 5 MG TAB PO ×2 (07:50→08:08)
[2023-07-10] MEDS: Thiamine 100 MG TAB PO (07:50)
[2023-07-10] MEDS: Pantoprazole 40 MG VIAL IVP (07:52)
[2023-07-10 07:58] VITALS: BP 117/77; PULSE 103; RESP 16; TEMP 36.5; O2SAT 97
--- NOTE | 2023-07-10 09:08 | PDOC.CMPRO ---
Date of service: 07/10/23 Time of Service: 09:08 Care Management Progress Note Progress Note Text Progress Note Text: S/O: Shasta was sitting up on the edge of her bed when CM met with her. A: Shasta is a 42 year old female admitted to [facility] on 07/06/23 for pancreatitis. P: Anticipate Shasta will be discharged home with no new services. She will follow up with her community providers and plan of care and transport with family. CM will follow and continue to assess for discharge needs.
--- NOTE | 2023-07-10 10:46 | W.PM.DS.N ---
Date of service: 07/10/23 Time of Service: 10:46 DS: Diagnosis Discharge Diagnosis (1) Acute pancreatitis: Status: Acute (2) Essential hypertension: Status: Acute (3) Alcoholism: Status: Acute (4) UTI (urinary tract infection): Status: Ruled-out (5) Insomnia: Status: Acute Discharge Plan Disposition Patient Disposition: Home Condition: Improving Discharge Details Reason For Visit: Pancreatitis, Alcohol Withdrawal Admit Date/Time: 07/06/23 20:17 Admit Provider: Irving Hall Attending Provider: Irving Hall Primary Care Provider: IsabelChilton Hospital Course Hospital Course: This is a 42 year old female with history of alcohol abuse (drinks several shots of Rum and drinks 3 to 4 beers per day) who presented to the ED with nausea and vomiting and epigastric pain. Workup in the E.D. included labs and abdominal CT that demonstrated acute pancreatitis. Lipase >375, CT concerning for peripancreatic fat stranding and some hypodensities in the uncinate and head of the pancreas that may represent some pancreatic necrosis. Labs were concerning for WBC 16,900 lipase >375, transaminases were relatively normal but her anion gap was elevated. Urinalysis was concerning for UTI. Patient was treated in the ED with iv fluids, antiemetics, dilaudid for her pain and Rocephin for her UTI. She was begun on phenobarbital protocol to prevent acute withdrawal. Hospital course also complicated with poorly controlled blood sugar, patient has history of hypertension and states that she has not been well controlled on her home medications She was started on amlodipine with improvement in blood pressure. She responded to bowel rest and diet advanced. she continued to improve with resolution of her abdominal pain and also responded well to the phenobarb protocol for withdrawal with no acute symptoms. Her diet was advanced and she is safe for discharge to home. Her repeat urine showed no evidence of untreated UTI so no further antibiotics needed at discharge she is safe for discharge to home with no new services discussed with Dr Fletcher. Home Meds and New Rx's Prescriptions: New amlodipine 5 mg tablet 5 mg PO DAILY Qty: 30 0RF Continued albuterol sulfate [ProAir HFA] 8.5 GM HFA aerosol inhaler 2 puff Inhalation PRN PRN olmesartan 20 mg tablet 20 mg PO DAILY Patient Comments: TAKE ONE TABLET BY MOUTH EVERY DAY diphenhydramine HCl [Benadryl] 25 mg Capsule 25 mg PO Q6H PRN Discharge Instructions Instructions: Pancreatitis (DC), Hypertension (DC) Additional Instructions: avoid alcohol Stand Alone Forms: Nursing Discharge Form Referrals: Heather Hall NP [Primary Care Provider] - (Please call to set up a follow up within 10-14 days. ) Activity:: Activity as Tolerated Equipment/Supplies:: No Equipment Needed Diet:: Other Discharge Orders Discharge Orders: Discharge Order (Routine); Ordered 07/10/23 Ordered By: Haylie Pizarro Discharge Data Discharge Date/Time-TO BE ENTERED AT DEPARTURE: 07/10/23 12:30 DS: Summary Time Spent with Patient providing and/or coordinating discharge services: Less than 30 minutes Status at Discharge Functional status at discharge: independent ambulation Overall status at discharge: patient is progressing back to baseline Mental Status: mental status grossly normal Speech and Movement: speech and movement normal Mood: congruent mood Affect: normal affect Quality:SDOH Health Related Social Needs: No Data to Display Exam Const General: no acute distress Orientation: alert HENMT Head: normal to inspection Ears: external ears normal General nose exam: external nose normal Mouth: moist mucous membranes Eyes General: appearance normal, both eyes and all related structures Neck Neck: normal visual inspection Resp Effort & Inspection: normal respiratory effort and able to speak in complete sentences Auscultation: clear to auscultation bilaterally Cardio Rhythm: regular rhythm GI Inspection: normal to inspection, large pannus and obesity Palpation: soft and nontender Auscultation: normal bowel sounds Skin General skin exam: no rashes or lesions noted Neuro General: patient alert and patient oriented x3 Extrem General: normal to inspection Psych Mental Status: mental status grossly normal Speech and Movement: speech and movement normal Mood: congruent mood Affect: normal affect DS: Data Vitals/I&O Vitals and I&O: Vital Signs Temperature 36.5 C 07/10/23 07:58 Temperature Source Tympanic 07/10/23 07:58 Pulse 103 H 07/10/23 07:58 Pulse Rhythm Regular 07/10/23 02:51 Pulse 61 07/06/23 21:00 Respiratory Rate 16 07/10/23 07:58 Respiratory Effort Normal 07/10/23 02:51 Respiratory Depth Normal 07/10/23 02:51 Respiratory Pattern Normal 07/10/23 02:51 Blood Pressure 117/77 07/10/23 07:58 Blood Pressure Mean 134 07/06/23 19:52 Pulse Oximetry 97 07/10/23 07:58 Oxygen Delivery Method Room Air 07/10/23 07:58 Oxygen Flow Rate 0 07/10/23 07:58 Pain Level 6 07/10/23 07:44 Comment Pt states pain meds she got a little while ago are helping. 07/09/23 15:40 Intake & Output 07/09/23 07/09/23 07/10/23 11:59 23:59 11:59 Intake Total 1178 / 1178 Balance 1178 / 1178 Weight 125.5 kg Intake: IV Oral 1168 / 1168 Other: Urine Color Pale Urine Appearance Clear Clear Clear Urine Odor None Comment Independently. pt stated she has voided x3 this morning Voiding Methods Toilet Toilet Data Completed and Pending Labs on day of discharge: Labs from last 24 hours 07/10/23 07/10/23 10:45 06:04 WBC 10.28 RBC 3.52 L Hgb 12.4 Hct 37.0 MCV 105 H MCH 35.2 H MCHC 33.5 RDW 12.0 Plt Count 189 MPV 8.9 Immature Gran % 1.8 Neutrophils % 78.3 Lymphocytes % 11.6 Monocytes % 7.0 Eosinophils % 0.7 Basophils % 0.6 Nucleated RBC % 0.0 Absolute Neutrophils 8.05 H Absolute Lymphocytes 1.19 L Absolute Monocytes 0.72 Absolute Eosinophils 0.07 Absolute Basophils 0.06 Sodium 133 L Potassium 3.6 Chloride 98 Carbon Dioxide 27.3 Anion Gap 7.7 BUN 8 Creatinine 0.8 Est GFR (CKD-EPI 2020) 95.46 Glucose 116 H Calcium 8.4 L Magnesium 2.3 Urine Color Pending Urine Clarity Pending Urine pH Pending Ur Specific [place] Pending Urine Protein Pending Urine Ketones Pending Urine Blood Pending Urine Nitrite Pending Urine Bilirubin Pending Urine Urobilinogen Pending Ur Leukocyte Esterase Pending Urine Glucose Pending PFSH All Active Problems (Updated 07/10/23 @ 12:57 by Haylie Pizarro NP) Insomnia (Acute) On deep vein thrombosis (DVT) prophylaxis (Acute) Alcoholism (Acute) Essential hypertension (Acute) Acute pancreatitis (Acute) Social History Smoking/Tobacco Use Status: Current every day Tobacco Type: cigarettes Smoking risk assessment performed?: Yes Alcohol Intake: current Alcohol Intake frequency: 3 or more drinks per day Drug use: Socially Substance use type: marijuana Housing: house Do you feel safe at home: Yes Do you feel safe in your relationship?: Yes Time Spent with Patient Time Spent with Patient: 45-69 minutes Time was spent: preparing to see the patient(eg.review tests), obtaining and/or reviewing separately otained hiistory, ordering medications,tests, procedures, indepentently interpreting results and counseling the patient
[2023-07-10 10:52] LABS: Bilirubin Moderate (Negative); Blood Negative (Negative); Clarity Sl Cloudy (Clear); Glucose 100 mg/dL (Negative); Ketones Trace mg/dL (Negative); Leukocyte Esterase Negative (Negative); Nitrite Negative (Negative); Specific Gravity 1.025 (1.005-1.025); Urobilinogen >=8.0 mg/dL (Up to 0.2)
[2023-07-10 11:10] VITALS: BP 117/78; PULSE 102; RESP 16; TEMP 36.7; O2SAT 95
--- NOTE | 2023-07-10 17:17 | CMDISCH_ITS ---
Date of service: 07/10/23 Time of Service: 17:17 LACE Index Scoring Tool Questions: Length of Stay (in days): 4 - 6 Was the patient admitted via the E.D.?: Yes Comorbidities: Liver or Renal Disease E.D. Visits: 1 Answers: Total Score: 13 Risk of Readmission: High Risk Care Management Discharge Plan Reason for Hospitalization: pancreatitis Discharge Plan: Shasta will be discharged home with no new services. She will follow up with her community providers and plan of care and transport with family. Patient/Family Education Needs: Review of discharge instructions, diet, activity, limitations, follow up plan and discuss Ask Me Three [facility] Health Related Social Needs: No Data to Display
== END 2023-07-10 12:30 | disposition home or self-care (01) | DRG 439 ==
LOC: ER 19:59 → MS 21:55
PROVIDERS: Nurse Practitioner Acute Care; Nurse Practitioner Family; Admitting Provider Internal Medicine; Emergency Provider Emergency Medicine; PCP Nurse Practitioner Family; Visit Provider Internal Medicine
DX: K85.21 Alcohol induced acute pancreatitis with uninfected necrosis (principal); Z68.43 Body mass index [BMI] 50.0-59.9, adult; F10.20 Alcohol dependence, uncomplicated; I10 Essential (primary) hypertension; F17.210 Nicotine dependence, cigarettes, uncomplicated; G47.00 Insomnia, unspecified; E66.9 Obesity, unspecified
CPT/HCPCS: 00123; 36415; 80048; 80053; 80061; 80307; 82805; 83690; 84145; 96365; 96375; 99285; J1650; 74177; 76700; 80320; 81003; 81015; 82248; 83605; 83735; 84703; 85025; 85610; 85730; 86140; 87086; 99223; 99232; 99233; 99238; J0131; J0696; J0780; J1170; J1920; J2060; J2470; J2560; J3411; J3490

== ENCOUNTER 2023-09-30 09:07 | Emergency (ER) | payer MEDICAID, SELFPAY ==
[2023-09-30 09:11] VITALS: BP 173/96; PULSE 118; RESP 18; TEMP 36.9; O2SAT 98
--- NOTE | 2023-09-30 09:29 | ED.GENADUL_ITS ---
Discharge Plan Disposition Patient Disposition: Home Condition: Stable Discharge Details Clinical Impression: Fracture of left foot Primary Care Provider: Unknown,Unknown ED Provider: Melania Nathan Home Meds and New Rx's Prescriptions: No Action albuterol sulfate [ProAir HFA] 8.5 GM HFA aerosol inhaler 2 puff Inhalation PRN PRN olmesartan 20 mg tablet 20 mg PO DAILY Patient Comments: TAKE ONE TABLET BY MOUTH EVERY DAY amlodipine 5 mg tablet 5 mg PO DAILY Qty: 30 0RF diphenhydramine HCl [Benadryl] 25 mg Capsule 25 mg PO Q6H PRN Discharge Instructions Instructions: Foot Fracture in Adults (ED) Additional Instructions: Stay off of the foot is much as possible. Use the crutches as directed. You do have a broken bone the middle of your foot. Please follow-up with orthopedics in the next 1 to 2 weeks. Rest, ice, compression elevation. Wear the walking boot is much as possible. Please take Tylenol or Ibuprofen with food every 4-6 hours as needed for pain and swelling. Stand Alone Forms: Work Release Referrals: Manny Bansal MD [ [facility] STAFF PHYSICIAN] - 1 week Discharge Data Discharge Date/Time-TO BE ENTERED AT DEPARTURE: 09/30/23 10:43 HPI General Mode of arrival: ambulatory . Date/Time Provider Initiated Documentation: 09/30/23 09:13 . Limitations to Documentation: no limitations . Information obtained by: patient, RN notes reviewed and old records reviewed . HPI Narrative: 42-year-old female presents to the ER with a chief complaint of left foot swelling and pain. Patient states that she tripped over a girl on her porch catching her left foot between the step on Friday. She reports increased pain with ambulation. She does have some ecchymosis noted and swelling to her foot. Denies any knee leg or ankle pain. Has been taking Tylenol and ibuprofen with little to no relief no other Complaints. Related Data Home Medications Medication Instructions Recorded Confirmed albuterol sulfate 90 mcg/actuation 2 puff inhalation PRN PRN 05/20/14 09/30/23 aerosol inhaler (ProAir HFA) diphenhydramine HCl 25 mg capsule 25 mg PO Q6H PRN 11/17/19 09/30/23 (Benadryl) olmesartan 20 mg tablet 20 mg PO DAILY 07/06/23 09/30/23 amlodipine 5 mg tablet 5 mg PO DAILY #30 tabs 07/10/23 09/30/23 Previous Rx's Medication Instructions Recorded amlodipine 5 mg tablet 5 mg PO DAILY #30 tabs 07/10/23 Allergies Allergy/AdvReac Type Severity Reaction Status Date / Time egg Allergy Intermediate Hives Unverified 09/30/23 09:13 General Stated Complaint: Orthopedic GIRMA: 4 Review of Systems All systems reviewed & are unremarkable except as noted in HPI and below Musculoskeletal Musculoskeletal: Reports as per HPI Exam Extrem Left lower extremity: foot Details: tenderness and ecchymosis dorsal Course Vital Signs Vital signs: Vital Signs Temperature 36.9 C 09/30/23 09:11 Pulse 118 H 09/30/23 09:11 Respiratory Rate 18 09/30/23 09:11 Blood Pressure 173/96 H 09/30/23 09:11 Pulse Oximetry 98 09/30/23 09:11 Temperature 36.9 C 09/30/23 09:11 Temperature Source Temporal Artery Scan 09/30/23 09:11 Pulse 118 H 09/30/23 09:11 Respiratory Rate 18 09/30/23 09:11 Respiratory Effort Normal, Non-Labored 09/30/23 09:14 Blood Pressure 173/96 H 09/30/23 09:11 Blood Pressure Position Sitting 09/30/23 09:11 Pulse Oximetry 98 09/30/23 09:11 Oxygen Delivery Method Room Air 09/30/23 09:11 Oxygen Flow Rate 0 09/30/23 09:11 Medical Decision Making 42-year-old female presents to the ER with a chief complaint of left foot swelling and pain. Patient states that she tripped over a girl on her porch catching her left foot between the step on Friday. She reports increased pain with ambulation. She does have some ecchymosis noted and swelling to her foot. Denies any knee leg or ankle pain. Has been taking Tylenol and ibuprofen with little to no relief no other Complaints. XRay left foot ordered. X-Ray shows fractured Cuboid bone, placed in walking boot and given crutches. Philip moncada discharge instructions and follow up care. This text was generated using [employer] system, please disregard any oddities of phrase or misspellings. Imaging Data Radiologic Study: Imaging: X-Ray Radiologist's impression: Exam(s) XR FOOT LT COMPLETE EXAM: XR FOOT LT COMPLETE CLINICAL HISTORY: Injury, pain swelling. TECHNIQUE: 2D digital imaging was performed. Three views. COMPARISON: No exams were available for comparison FINDINGS: BONES: Nondisplaced fracture of the distal aspect of the cuboid. Fracture extends to the articular surface. No visible separation at the articular surface. No additional fractures are identified. No bony destructive lesion is seen. Heel spur. JOINTS: No dislocation present. SOFT TISSUE: Normal. IMPRESSION: Nondisplaced cuboid fracture. Quality:SDOH Health Related Social Needs: No Data to Display PFSH All Active Problems (Updated 09/30/23 @ 10:24 by Melania Nathan NP) Fracture of left foot (Acute) Insomnia (Acute) Alcoholism (Acute) Essential hypertension (Acute) Acute pancreatitis (Acute) Social History Smoking/Tobacco Use Status: Current every day Tobacco Type: e-cigarettes Smoking risk assessment performed?: Yes Alcohol Intake: current Alcohol Intake frequency: 0-2 drinks per day Drug use: Socially Substance use type: marijuana Housing: house Do you feel safe at home: Yes Do you feel safe in your relationship?: Yes PAWSS Have you Been Recently Intoxicated or Drunk Within the Last 30 days?: No Have you Ever Experienced Previous Episodes of Alcohol Withdrawal?: No Have you ever Experienced Withdrawal Seizures?: No Have you ever undergone Alcohol Rehabilitation Treatment (i.e, inpt ot outpatient treatment programs)?: Yes Have you ever Experienced Blackouts?: No Have you ever Combined Alcohol with other Downers within the last 90 days?: No Have you ever Combined Alcohol with any other Substance of Abuse during the last 90 days?: No Positive Blood Alcohol level on Presentation? [PCS.BAL]: No Evidence of Increased Autonomic Activity (i.e. HR>120, tremor, sweating, agitation, nausea)?: No Result: 1
--- NOTE | 2023-09-30 09:54 | DI.RAD_ITS ---
Exam(s) XR FOOT LT COMPLETE EXAM: XR FOOT LT COMPLETE CLINICAL HISTORY: Injury, pain swelling. TECHNIQUE: 2D digital imaging was performed. Three views. COMPARISON: No exams were available for comparison FINDINGS: BONES: Nondisplaced fracture of the distal aspect of the cuboid. Fracture extends to the articular s urface. No visible separation at the articular surface. No additional fractures are identified. No bony destructive lesion is seen. Heel spur. JOINTS: No dislocation present. SOFT TISSUE: Normal. IMPRESSION: Nondisplaced cuboid fracture. DATA REPOSITORY: RADIATION DOSE DELIVERED:
== END 2023-09-30 10:43 | disposition home or self-care (01) ==
PROVIDERS: Emergency Provider Registered Nurse Emergency
DX: S92.215A Nondisplaced fracture of cuboid bone of left foot, initial encounter for closed fracture (principal); W01.0XXA Fall on same level from slipping, tripping and stumbling without subsequent striking against object, initial encounter; Y93.01 Activity, walking, marching and hiking; Y92.018 Other place in single-family (private) house as the place of occurrence of the external cause
CPT/HCPCS: 99283; 73630

== ENCOUNTER 2023-10-15 14:56 | Outpatient (CLI) | payer MEDICAID, SELFPAY ==
--- NOTE | 2023-10-15 13:57 | DI.RAD_ITS ---
Exam(s) XR FOOT LT COMPLETE EXAM: XR FOOT LT COMPLETE CLINICAL HISTORY: F/U FRACTURE. TECHNIQUE: 2D digital imaging was performed of the left foot. Three images were obtained. AP, obli que and lateral views were obtained. COMPARISON: CR XR FOOT LT COMPLETE from 09/30/2023 FINDINGS: BONES: The lucencies in the distal aspect of the cuboid are again seen suggesting a nondisplaced frac ture. No bony destructive lesion is seen. JOINTS: No dislocation present. SOFT TISSUE: Normal. IMPRESSION: Stable cuboid fracture. DATA REPOSITORY: RADIATION DOSE DELIVERED:
== END 2023-10-15 14:57 | disposition home or self-care (01) ==
LOC: DIORS 14:57
PROVIDERS: PCP Physician Assistant; Visit Provider Student in an Organized Health Care Education/Training Program
DX: S92.212D Displaced fracture of cuboid bone of left foot, subsequent encounter for fracture with routine healing (principal); X58.XXXD Exposure to other specified factors, subsequent encounter
CPT/HCPCS: 73630

== ENCOUNTER 2023-10-23 07:34 | Emergency (ER) | payer MEDICAID, SELFPAY ==
[2023-10-23 07:36] VITALS: BP 162/93; PULSE 95; RESP 18; TEMP 36.2; O2SAT 100
[2023-10-23 08:00] LABS: Abs Immature Grans 0.06 10^3/uL (0.0-0.06); Absolute Basophil Count 0.03 10^3/uL (0.0-0.2); Absolute Eosinophil Count 0.01 10^3/uL (0.0-0.7); Absolute Lymphocyte Count 0.92 10^3/uL (1.2-3.4); Absolute Neutrophil Count 8.46 10^3/uL (1.2-6.7); Basophils % 0.3 %; Eosinophils % 0.1 %; HCT 44.7 % (36.0-46.0); Immature Grans % 0.6 %; MCH 34.7 pg (27.0-33.0); MCHC 33.6 % (32.0-36.0); MCV 104 fL (80-95); MPV 8.3 fL (8.0-11.0); Monocytes % 6.9 %; Neutrophils % 83.1 %; Platelet Count 235 10^3/uL (130-400); RBC 4.32 10^6/uL (3.93-5.22); RDW 12.3 % (11.7-14.6); RDW-SD 47.3 fL; WBC 10.18 10^3/uL (4.4-10.8)
--- NOTE | 2023-10-23 08:00 | ED.GENADUL_ITS ---
Discharge Plan Disposition Patient Disposition: Home Condition: Improving Discharge Details Clinical Impression: Pancreatitis Primary Care Provider: Cam Paniagua ED Provider: Tj Huston Home Meds and New Rx's Prescriptions: New pantoprazole 40 mg tablet,delayed release (DR/EC) 40 mg PO DAILY Qty: 14 0RF No Action albuterol sulfate [ProAir HFA] 8.5 GM HFA aerosol inhaler 2 puff Inhalation PRN PRN olmesartan 20 mg tablet 20 mg PO DAILY Patient Comments: TAKE ONE TABLET BY MOUTH EVERY DAY amlodipine 5 mg tablet 5 mg PO DAILY Qty: 30 0RF diphenhydramine HCl [Benadryl] 25 mg Capsule 25 mg PO Q6H PRN Discharge Instructions Instructions: Pancreatitis (ED) HPI General Date/Time Provider Initiated Documentation: 10/23/23 07:47 . HPI Narrative: 42-year-old female presents with abdominal discomfort mid abdomen associate with nausea and vomiting over the last day. Denies history of abdominal surgeries. Denies urinary symptoms Related Data Home Medications Medication Instructions Recorded Confirmed albuterol sulfate 90 mcg/actuation 2 puff inhalation PRN PRN 05/20/10/23/23 aerosol inhaler (ProAir HFA) diphenhydramine HCl 25 mg capsule 25 mg PO Q6H PRN 11/17/19 10/23/23 (Benadryl) olmesartan 20 mg tablet 20 mg PO DAILY 07/06/23 10/23/23 amlodipine 5 mg tablet 5 mg PO DAILY #30 tabs 07/10/23 10/23/23 pantoprazole 40 mg tablet,delayed 40 mg PO DAILY #14 tabs 10/23/23 release Previous Rx's Medication Instructions Recorded amlodipine 5 mg tablet 5 mg PO DAILY #30 tabs 07/10/23 pantoprazole 40 mg tablet,delayed 40 mg PO DAILY #14 tabs 10/23/23 release Allergies Allergy/AdvReac Type Severity Reaction Status Date / Time egg Allergy Intermediate Hives Unverified 10/23/23 07:39 General Stated Complaint: Abd Prob GIRMA: 3 Review of Systems Narrative: Review of Systems Constitutional: negative Eyes: negative ENT: negative Cardiovascular: negative Respiratory: negative Gastrointestinal: Abdominal pain nausea vomiting : negative Musculoskeletal: negative Skin: negative Neurologic: negative Psych: negative Exam Narrative Exam Narrative: Physical Examination General: alert, awake, cooperative, resting comfortably, no acute distress HEENT: normocephalic, atraumatic; PERRL, EOM intact, conjunctiva normal; no nasal discharge; moist mucous membranes, oral and pharyngeal mucosa normal, tolerating secretions Neck: supple, trachea midline; full ROM Chest: normal to inspection Respiratory: normal respiratory effort, speaking in full sentences, clear to auscultation, no wheezing, rales or rhonchi Cardiac: regular rate, regular rhythm, S1S2 intact, no murmurs rubs or gallops GI: abdomen soft, non-tender, non-distended; no palpable mass or hepatosplenomegaly Skin: no lesions, rashes or trauma appreciated Neuro: AAOx3, normal speech, moving all extremities Psych: Appropriate mood and affect Course Vital Signs Vital signs: Vital Signs Temperature 36.2 C L 10/23/23 07:36 Pulse 95 H 10/23/23 07:36 Respiratory Rate 18 10/23/23 07:36 Blood Pressure 162/93 H 10/23/23 07:36 Pulse Oximetry 100 10/23/23 07:36 Temperature 36.2 C L 10/23/23 07:36 Temperature Source Temporal Artery Scan 10/23/23 07:36 Pulse 95 H 10/23/23 07:36 Respiratory Rate 18 10/23/23 07:36 Blood Pressure 162/93 H 10/23/23 07:36 Pulse Oximetry 100 10/23/23 07:36 Pain Level 10 10/23/23 07:36 Medical Decision Making 42-year-old female presents with mid abdominal discomfort nausea and vomiting. Afebrile nontoxic nonperitoneal. Consider gastroenteritis versus colitis versus diverticulitis versus gastritis versus must consider cholecystitis versus biliary colic versus early appendicitis. Low suspicion for UTI or pyelonephritis. No chest pain or shortness of breath suggest atypical ACS PE pneumonia or pneumothorax. Screening labs fluids analgesia antiemetics. CT abdomen pelvis close reassessment 10: 10 evidence of persistent pancreatitis. No acute distress currently resting more comfortably. Will redose analgesia close reassessment consider home with close follow-up 11: 58 resting notably no acute distress nonperitoneal no nausea no vomiting. Quality:SDOH Health Related Social Needs: No Data to Display PFSH All Active Problems (Updated 10/23/23 @ 11:58 by Tj Huston MD) Pancreatitis (Chronic) Left cuboid fracture (Acute ~09/27/23) Fracture of left foot (Acute) Insomnia (Acute) Alcoholism (Acute) Essential hypertension (Acute) Acute pancreatitis (Acute) Medical History (Updated 10/23/23 @ 11:58 by Tj Huston MD) Conductive hearing loss (10/20/13) Social History Smoking/Tobacco Use Status: Current every day Tobacco Type: e-cigarettes Smoking risk assessment performed?: Yes Alcohol Intake: current Alcohol Intake frequency: 0-2 drinks per day Alcohol type: beer and hard liquor Drug use: Socially Substance use type: marijuana Housing: house Do you feel safe at home: Yes Do you feel safe in your relationship?: Yes
[2023-10-23] MEDS: Ondansetron 4 MG/2 ML VIAL IVP (08:01)
[2023-10-23] MEDS: MORPHine 4 MG/ML SYR 2 MG IVP (08:01)
[2023-10-23] MEDS: ACETAMINOPHEN 1,000 MG/100 ML BTL 400 MG IVPB (08:01)
[2023-10-23] MEDS: Normal Saline 1,000 ML 1000 ML IV (08:03)
[2023-10-23 08:06] LABS: Bilirubin Moderate (Negative); Blood Trace-intact (Negative); Clarity Clear (Clear); Glucose Negative (Negative); Ketones >=160 mg/dL (Negative); Leukocyte Esterase Negative (Negative); Nitrite Negative (Negative); Specific Gravity 1.025 (1.005-1.025); pH 7.5 (5-8)
[2023-10-23 08:12] LABS: Bacteria Rare HPF (Negative); C & S Indicated? No; Casts 0-2 Hyaline LPF (Negative); Crystals Negative HPF (Negative); Epithelial Cells Many HPF (Negative); Mucus Heavy (Negative); RBC 0-2 HPF (0-2); WBC Negative HPF (0-5)
[2023-10-23] MEDS: Normal Saline - Diluent 50 ML VIAL IV (08:24)
[2023-10-23] MEDS: Omnipaque 350 MG/ML 500 ML BTL-Imaging package IJ (08:25)
[2023-10-23 08:33] LABS: ALT 42 U/L (14-59); AST 51 U/L (15-37); Albumin 3.5 g/dL (3.4-5.0); Alkaline Phosphatase 86 U/L (46-116); Anion Gap 11.3 mmol/L (3-11); BUN 10 mg/dL (7-18); CO2 25.7 mmol/L (21.0-32.0); CREATININE 0.7 mg/dL (0.55-1.02); Calcium 8.9 mg/dL (8.5-10.1); Chloride 99 mmol/L (98-107); Estimated GFR 112.05 (mL/min/1.73m2); Glucose 149 mg/dL (74-106); Potassium 3.8 mmol/L (3.5-5.1); Sodium 136 mmol/L (136-145); Total Protein 7.5 g/dL (6.4-8.2)
--- NOTE | 2023-10-23 08:40 | DI.CT_ITS ---
Exam(s) CT ABDOMEN PELVIS W EXAM: CT ABDOMEN PELVIS W CLINICAL HISTORY: mid abdominal pain n v. TECHNIQUE: Imaging Protocol: Axial computed tomography images with coronal and sagittal reformatted images were created and reviewed CONTRAST MATERIAL: Intravenous: Omnipaque-350 100cc Oral: None COMPARISON: No exams were available for comparison FINDINGS: VISUALIZED LUNG BASES: No nodules nor pleural effusions evident. ABDOMEN: LIVER: Liver is hypodense implying steatosis. This is most profound at the interhemispheric fissure, more so than previous. No dilated intrahepatic ducts. GALLBLADDER/BILIARY: No obvious gallbladder pathology. CBD is not dilated. PANCREAS: Again noted consistent with pancreatitis, similar but slightly less so than was evident on the CT scan of July 06, 2023.. There is no pancreatic mass nor dilatation pancreatic duct. No pa ncreatic calcifications. Spleen size is normal. No splenic lesions. There is no thrombosis of the splenic vein. There is some streaking around the duodenum which is secondary to the pancreatitis. No perforation. No aneurysm of the gastroduodenal artery seen. SPLEEN: Spleen is not enlarged. No obvious intrasplenic lesions. There is no thrombosis of the sple colby vein, as is sometimes seen as a complication of pancreatitis. ADRENALS: There are no significant adrenal masses. KIDNEYS:No cysts evident. No solid renal masses. No calculi nor hydronephrosis.. ABDOMINAL AORTA: Abdominal aorta is not enlarged. LYMPH NODES:There is no retroperitoneal nor paraaortic adenopathy. ABDOMINAL WALL: No evidence of significant anterior abdominal wall nor inguinal hernia. GI: There is no evidence of bowel obstruction, free air, nor abscess. PELVIS: GI: No evidence of appendicitis.No evidence of sigmoid diverticulitis. LYMPH NODES: There is no intrapelvic nor inguinal adenopathy. REPRODUCTIVE: Uterus and adnexal regions unremarkable. Left ovary unremarkable. There is a cyst in the right ovary which measures 4 x 4 cm. zx No extraovarian adnexal masses nor fluid in the cul-de-sa c. URINARY BLADDER: No calculi nor obvious masses evident OSSEOUS: No fractures. No lytic osseous lesions. SI joints unremarkable. There is increased densit y on both sides of the symphysis pubis probably indicating element of osteitis symphysis pubis. This is unchanged from 07/06/2023. IMPRESSION: 1. Compared to the prior CT scan of 07/06/2023 there is again noted evidence of acute pancreatitis. Without interval scans since June 2013 is not possible to determine if the previous episode of sev ere pancreatitis resolved and then recurred or of this is still remnant from the July 06 2023 panc reatic findings. There is no formed pseudocyst. There is no thrombosis of the splenic vein, gastrod uodenal artery aneurysm, nor duodenal perforation. 2. There is a 4 x 4 cm cyst in the right ovary. No fluid in the cul-de-sac. Called by myself to ER physician. RADIATION DOSE DELIVERED: 1,720.12mGy.cm Total DLP DATA REPOSITORY: All CT scans at this facility are submitted to the National Radiology Data Registry (NRDR) Dose Index Registry (DIR) with the [employer] ([employer]). RADIATION OPTIMIZATION: All CT scans at this facility use at least one of these dose optimization te chniques: automated exposure control; mA and/or kV adjustment per patient size (includes targeted exa ms where dose is matched to clinical indication); or iterative reconstruction.
[2023-10-23 08:52] LABS: Lipase > 375 U/L (16-77)
[2023-10-23] MEDS: Famotidine 20 MG/2 ML VIAL IVP (10:06)
[2023-10-23] MEDS: HYDROmorphone 2 MG/ML SYR 0.5 MG IVP (10:06)
[2023-10-23 11:03] VITALS: BP 190/107; PULSE 89; TEMP 36.4; O2SAT 97
[2023-10-23 11:04] VITALS: BP 190/107; PULSE 89; RESP 18; TEMP 36.4; O2SAT 97
[2023-10-23 12:04] VITALS: BP 183/96; PULSE 96; RESP 18; TEMP 36.7; O2SAT 97
== END 2023-10-23 12:09 | disposition home or self-care (01) ==
PROVIDERS: Emergency Provider Emergency Medicine; PCP Physician Assistant
DX: K85.90 Acute pancreatitis without necrosis or infection, unspecified (principal); I10 Essential (primary) hypertension; F17.290 Nicotine dependence, other tobacco product, uncomplicated
CPT/HCPCS: 80053; 81025; 83690; 96365; 96366; 96375; 99285; 74177; 81003; 81015; 85025; 99284; J0131; J1170; J2270; J2405

== ENCOUNTER 2023-12-29 20:41 | Emergency (ER) | payer MEDICAID, SELFPAY ==
[2023-12-29] VITALS (11 sets, daily range): BP systolic 156–176; BP diastolic 90–113; PULSE 90–122; RESP 13–30; TEMP 36.4; O2SAT 99
--- NOTE | 2023-12-29 21:00 | RT.EKG_ITS ---
APPROVED REPORT Exam: Resting ECG Reason for Exam: sob Patient Location: E HR:105 bpm ECG Measurements Heart Rate 105 AXIS [place] 133 P 42 QRSd 74 QRS 13 QT 348 T 38 QTc 460 Conclusion Sinus tachycardia...rate> 99 Anterior infarct, old...Q >40mS, abnormal ST-T, V2-V5
[2023-12-29 21:10] LABS: Abs Immature Grans 0.08 10^3/uL (0.0-0.06); Absolute Basophil Count 0.05 10^3/uL (0.0-0.2); Absolute Lymphocyte Count 2.54 10^3/uL (1.2-3.4); Absolute Monocyte Count 0.87 10^3/uL (0.1-0.8); Basophils % 0.4 %; Eosinophils % 0.5 %; HCT 44.1 % (36.0-46.0); HGB 15.1 g/dL (11.2-15.7); Immature Grans % 0.6 %; Lymphocytes % 19.3 %; MCHC 34.2 % (32.0-36.0); MCV 102 fL (80-95); MPV 8.3 fL (8.0-11.0); Monocytes % 6.6 %; Neutrophils % 72.6 %; Platelet Count 255 10^3/uL (130-400); RBC 4.32 10^6/uL (3.93-5.22); RDW 11.8 % (11.7-14.6); RDW-SD 44.4 fL; WBC 13.18 10^3/uL (4.4-10.8)
[2023-12-29 21:11] LABS: Absolute Eosinophil Count 0.07 10^3/uL (0.0-0.7); Absolute Neutrophil Count 9.57 10^3/uL (1.2-6.7)
[2023-12-29] MEDS: Droperidol 5 MG/2 ML VIAL 1.25 MG IVP ×2 (21:18→22:09)
[2023-12-29] MEDS: Normal Saline 1,000 ML 1000 ML IV (21:19)
[2023-12-29 21:25] LABS: ALT 32 U/L (14-59); AST 45 U/L (15-37); Albumin 3.5 g/dL (3.4-5.0); Alkaline Phosphatase 102 U/L (46-116); Anion Gap 10.9 mmol/L (3-11); BUN 5 mg/dL (7-18); Bilirubin, Total 0.86 mg/dL (0.2-1.0); CO2 24.1 mmol/L (21.0-32.0); CREATININE 0.8 mg/dL (0.55-1.02); Calcium 8.9 mg/dL (8.5-10.1); Chloride 103 mmol/L (98-107); Estimated GFR 94.87 (mL/min/1.73m2); Glucose 146 mg/dL (74-106); Magnesium 1.5 mg/dL (1.8-2.4); Potassium 3.7 mmol/L (3.5-5.1); Sodium 138 mmol/L (136-145); Total Protein 7.2 g/dL (6.4-8.2)
[2023-12-29 21:27] LABS: Lipase 338 U/L (16-77)
[2023-12-29 22:21] LABS: Bilirubin Small (Negative); Blood Large (Negative); Clarity Cloudy (Clear); Glucose Negative (Negative); Ketones Negative (Negative); Leukocyte Esterase Negative (Negative); Nitrite Negative (Negative); Specific Gravity >= 1.030 (1.005-1.025); Urobilinogen 0.2 mg/dL (Up to 0.2); pH 6.5 (5-8)
[2023-12-29 22:28] LABS: RBC >50 HPF (0-2); WBC Negative HPF (0-5)
[2023-12-29 22:29] LABS: Bacteria Rare HPF (Negative); C & S Indicated? No; Crystals Negative HPF (Negative); Epithelial Cells Many HPF (Negative); Mucus Trace (Negative)
[2023-12-29] MEDS: LORazepam 2 MG/ML VIAL 1 MG IVP (22:31)
--- NOTE | 2023-12-29 23:24 | ED.GENADUL_ITS ---
Discharge Plan Disposition Patient Disposition: Home Discharge Details Clinical Impression: Elevated lipase, Abdominal pain, Hypomagnesemia Primary Care Provider: Cam Paniagua ED Provider: Caitlin Espinal Home Meds and New Rx's Prescriptions: New prochlorperazine maleate [Compazine] 10 mg tablet 10 mg PO TID PRNQty: 10 0RF magnesium 250 mg tablet 250 mg PO DAILY Qty: 10 0RF Continued albuterol sulfate [ProAir HFA] 8.5 GM HFA aerosol inhaler 2 puff Inhalation PRN PRN olmesartan 20 mg tablet 20 mg PO DAILY Patient Comments: TAKE ONE TABLET BY MOUTH EVERY DAY amlodipine 5 mg tablet 5 mg PO DAILY Qty: 30 0RF pantoprazole 40 mg tablet,delayed release (DR/EC) 40 mg PO DAILY Qty: 14 0RF diphenhydramine HCl [Benadryl] 25 mg Capsule 25 mg PO Q6H PRN lisdexamfetamine [Vyvanse] 30 mg capsule 30 mg PO DAILY Patient Comments: TAKE ONE CAPSULE BY MOUTH EVERY DAY Discharge Instructions Additional Instructions: Take the magnesium as supplied please follow-up for ultrasound in the morning increased fluids at home stay away from fatty foods, cut down on alcohol by 1 drink daily, never stopped drinking alcohol suddenly as this can cause you to go into withdrawal Take Compazine as needed for nausea and vomiting and return earlier should you have new or worsening complaints HPI General Date/Time Provider Initiated Documentation: 12/29/23 20:42 . HPI Narrative: 43-year-old female with history of alcoholism and pancreatitis presents with report of abdominal pain that started last evening after eating a hamburger. She states she has had this pain for the pancreatitis, however typically she can control it at home. She denies any current chest pain or shortness of breath. She denies any dizziness or weakness but she does states she has been vomiting all day, no blood in vomitus per patient. Denies any fever or chills or urinary symptoms. Does currently have her menses. Drinks a sixpack of beer daily, denies significant withdrawal symptoms, specifically no seizure history. Related Data Home Medications Medication Instructions Recorded Confirmed albuterol sulfate 90 mcg/actuation 2 puff inhalation PRN PRN 05/20/14 12/29/23 aerosol inhaler (ProAir HFA) diphenhydramine HCl 25 mg capsule 25 mg PO Q6H PRN 11/17/19 12/29/23 (Benadryl) olmesartan 20 mg tablet 20 mg PO DAILY 07/06/23 12/29/23 amlodipine 5 mg tablet 5 mg PO DAILY #30 tabs 07/10/23 12/29/23 pantoprazole 40 mg tablet,delayed 40 mg PO DAILY #14 tabs 10/23/23 12/29/23 release lisdexamfetamine 30 mg capsule 30 mg PO DAILY 12/29/23 12/29/23 (Vyvanse) magnesium 250 mg tablet 250 mg PO DAILY #10 tabs 12/29/23 prochlorperazine maleate 10 mg 10 mg PO TID PRN #10 tabs 12/29/23 tablet (Compazine) Previous Rx's Medication Instructions Recorded amlodipine 5 mg tablet 5 mg PO DAILY #30 tabs 07/10/23 pantoprazole 40 mg tablet,delayed 40 mg PO DAILY #14 tabs 10/23/23 release magnesium 250 mg tablet 250 mg PO DAILY #10 tabs 12/29/23 prochlorperazine maleate 10 mg 10 mg PO TID PRN #10 tabs 12/29/23 tablet (Compazine) Allergies Allergy/AdvReac Type Severity Reaction Status Date / Time egg Allergy Intermediate Hives Unverified 12/29/23 20:47 General Stated Complaint: Abd Prob GIRMA: 3 Exam Narrative Exam Narrative: 43-year-old female presenting with epigastric and right upper quadrant pain, alert and oriented, pupils equal round reactive to light accommodation. Uvula midline, oropharynx patent, no respiratory distress, sinus tachycardia, right upper quadrant tenderness and epigastric tenderness without rebound or guarding, no CVA tenderness, no abdominal bruit or pulsatile mass, alert and oriented x 4, distal pulses intact Course Vital Signs Vital signs: Vital Signs Temperature 36.4 C 12/29/23 20:43 Pulse 122 H 12/29/23 20:43 Respiratory Rate 16 12/29/23 20:43 Blood Pressure 176/113 H 12/29/23 20:43 Pulse Oximetry 99 12/29/23 20:43 Temperature 36.4 C 12/29/23 20:55 Pulse 98 H 12/29/23 22:58 Pulse 98 H 12/29/23 22:58 Respiratory Rate 20 12/29/23 22:58 Respiratory Effort Normal, Non-Labored 12/29/23 20:48 Blood Pressure 167/110 H 12/29/23 22:58 Blood Pressure Mean 124 12/29/23 22:58 Blood Pressure Position Sitting 12/29/23 20:55 Pulse Oximetry 99 12/29/23 22:58 Oxygen Delivery Method Room Air 12/29/23 20:55 Oxygen Flow Rate 0 12/29/23 20:55 Pain Level 10 12/29/23 20:55 Lab/Test Results Lab/Test Results: Laboratory Tests Range/Units 12/29/23 12/29/23 21:03 22:10 WBC (4.4-10.8) 10^3/uL 13.18 H RBC (3.93-5.22) 10^6/uL 4.32 Hgb (11.2-15.7) g/dL 15.1 Hct (36.0-46.0) % 44.1 MCV (80-95) fL 102 H MCH (27.0-33.0) pg 35.0 H MCHC (32.0-36.0) % 34.2 RDW (11.7-14.6) % 11.8 Plt Count (130-400) 10^3/uL 255 MPV (8.0-11.0) fL 8.3 Immature Gran % % 0.6 Neutrophils % % 72.6 Lymphocytes % % 19.3 Monocytes % % 6.6 Eosinophils % % 0.5 Basophils % % 0.4 Nucleated RBC % (0.0-0.3) % 0.0 Absolute Neutrophils (1.2-6.7) 10^3/uL 9.57 H Absolute Lymphocytes (1.2-3.4) 10^3/uL 2.54 Absolute Monocytes (0.1-0.8) 10^3/uL 0.87 H Absolute Eosinophils (0.0-0.7) 10^3/uL 0.07 Absolute Basophils (0.0-0.2) 10^3/uL 0.05 Sodium (136-145) mmol/L 138 Potassium (3.5-5.1) mmol/L 3.7 Chloride (98-107) mmol/L 103 Carbon Dioxide (21.0-32.0) mmol/L 24.1 Anion Gap (3-11) mmol/L 10.9 BUN (7-18) mg/dL 5 L Creatinine (0.55-1.02) mg/dL 0.8 Est GFR (CKD-EPI 2020) (mL/min/1.73m2) 94.87 Glucose (74-106) mg/dL 146 H Calcium (8.5-10.1) mg/dL 8.9 Magnesium (1.8-2.4) mg/dL 1.5 L Total Bilirubin (0.2-1.0) mg/dL 0.86 AST (15-37) U/L 45 H ALT (14-59) U/L 32 Alkaline Phosphatase (46-116) U/L 102 Total Protein (6.4-8.2) g/dL 7.2 Albumin (3.4-5.0) g/dL 3.5 Lipase (16-77) U/L 338 H Urine Color (Yellow) [place] Urine Clarity (Clear) Cloudy Urine pH (5-8) 6.5 Ur Specific [place] (1.005-1.025) >= 1.030 H Urine Protein (Neg-Trace) mg/dL 100 H Urine Ketones (Negative) mg/dL Negative Urine Blood (Negative) Large H Urine Nitrite (Negative) Negative Urine Bilirubin (Negative) Small H Urine Urobilinogen (Up to 0.2) mg/dL 0.2 Ur Leukocyte Esterase (Negative) Negative Urine RBC (0-2) HPF >50 H Urine WBC (0-5) HPF Negative Ur Epithelial Cells (Negative) HPF Many Urine Crystals (Negative) HPF Negative Urine Bacteria (Negative) HPF Rare Urine Mucus (Negative) Trace Ur Culture Indicated? No Urine Glucose (Negative) mg/dL Negative Medical Decision Making 43-year-old female presenting with right upper quadrant pain with nausea and vomiting. Denies any fever or chills. Lipase is elevated at 330 consistent with patient's prior assessments, mild leukocytosis at 13,000 mild elevation in glucose at 146, magnesium 1.5, AST at 45 not significantly changed. Magnesium was supplemented with 800 mg of magnesium oxide, I did recommend CT imaging, ho wever secondary to malfunctioning CT machine, this was unable to be performed. I recommended transportation for CT imaging, however patient is feeling marked improvement and is requesting discharge home and will return tomorrow for outpatient ultrasound. She is aware that we are unable to fully evaluate her to end the emergency department during today's visit. She is pending ultrasound tomorrow. She will continue with clear liquids to improve her pancreatitis. She is given antiemetics, Compazine, magnesium for home. She was given 2.5 of droperidol which nicely controlled her symptoms no evidence of acute alcohol withdrawal during today's visit. She will take magnesium at home, this was supplied. At this time patient is leaving prior to complete assessment, she is aware that she has not been fully evaluated and will return immediately tomorrow for ultrasound and call in the morning. Return precautions reviewed and patient states understanding, discharged home in stable condition with hypertension which she is encouraged to have rechecked by her primary care physician. EKG does not show evidence of QTc prolongation. Quality:SDOH Health Related Social Needs: No Data to Display PFSH All Active Problems (Updated 12/29/23 @ 23:09 by STEVEN Durant) Hypomagnesemia (Acute) Abdominal pain (Acute) Elevated lipase (Acute) No-show for appointment (Acute) Left cuboid fracture (Acute ~09/27/23) Insomnia (Acute) Alcoholism (Acute) Essential hypertension (Acute) Acute pancreatitis (Acute) Medical History (Updated 12/29/23 @ 23:09 by STEVEN Durant) Conductive hearing loss (10/20/13) Social History Smoking/Tobacco Use Status: Current every day Tobacco Type: e-cigarettes Smoking risk assessment performed?: Yes Alcohol Intake: current Alcohol Intake frequency: 0-2 drinks per day Alcohol type: beer and hard liquor Drug use: Daily Substance use type: marijuana Housing: house Do you feel safe at home: Yes Do you feel safe in your relationship?: Yes
[2023-12-29] MEDS: Magnesium Oxide 400 MG TAB 800 MG PO (23:35)
[2023-12-29] MEDS: Prochlorperazine 10 MG TAB PO (23:35)
== END 2023-12-29 23:36 | disposition home or self-care (01) ==
PROVIDERS: Emergency Provider Physician Assistant; PCP Physician Assistant
DX: R10.13 Epigastric pain (principal); R11.2 Nausea with vomiting, unspecified; E83.42 Hypomagnesemia; R74.8 Abnormal levels of other serum enzymes; R00.0 Tachycardia, unspecified; F17.290 Nicotine dependence, other tobacco product, uncomplicated
CPT/HCPCS: 36415; 80053; 83690; 93005; 96360; 96361; 99284; 81003; 81015; 83735; 85025; 93010; J1790; J2060

== ENCOUNTER 2024-03-17 15:22 | Emergency (ER) | payer MEDICAID, SELFPAY ==
[2024-03-17 15:28] VITALS: BP 133/98; PULSE 105; RESP 14; TEMP 36.8; O2SAT 97
--- NOTE | 2024-03-17 15:45 | RT.EKG_ITS ---
APPROVED REPORT Exam: Resting ECG Reason for Exam: epigastric pain Patient Location: E HR:80 bpm ECG Measurements Heart Rate 80 AXIS DC 138 P 12 QRSd 81 QRS 3 QT 379 T 83 QTc 438 Conclusion sinus 80 no stemi
--- NOTE | 2024-03-17 15:45 | DI.US_ITS ---
Exam(s) US ABDOMEN LIMITED EXAM: US ABDOMEN LIMITED CLINICAL HISTORY: RUQ TECHNIQUE: Ultrasound abdomen performed using standard protocol. COMPARISON: US US ABDOMEN from 07/07/[address] ABDOMEN PELVIS W from 10/23/2023 FINDINGS: There is no ascites evident. LIVER: Liver is mildly hyperechoic indicating steatosis. GALLBLADDER/BILIARY: No obvious gallstones nor gallbladder wall edema. The common hepatic duct isnot dilated, measuring 6mm at the level of sonja hepatis. PANCREAS: Poorly visualized due to overlying bowel gas but there are no obvious abnormal collections in this region, given the findings on prior CT scan of 10/23/2023. RIGHT KIDNEY:No evidence of solid mass, calculus, nor hydronephrosis. No cortical cysts evident. IMPRESSION: 1. Somewhat limited examination related toe bowel gas and body habitus. 2. There are no obvious gallstones, gallbladder wall edema nor gross dilatation of the CBD. 3. The pancreas is less than optimally seen. However, there are no obvious fluid collections in the pancreatic bed region, given the findings on the abdominal CT scan of October 2023 (pancreatitis at that time). DATA REPOSITORY:
[2024-03-17 16:09] LABS: Abs Immature Grans 0.06 10^3/uL (0.0-0.06); Absolute Basophil Count 0.03 10^3/uL (0.0-0.2); Absolute Eosinophil Count 0.03 10^3/uL (0.0-0.7); Absolute Lymphocyte Count 2.14 10^3/uL (1.2-3.4); Absolute Monocyte Count 0.73 10^3/uL (0.1-0.8); Absolute Neutrophil Count 5.74 10^3/uL (1.2-6.7); Basophils % 0.3 %; Eosinophils % 0.3 %; HCT 43.5 % (36.0-46.0); HGB 14.9 g/dL (11.2-15.7); Immature Grans % 0.7 %; Lymphocytes % 24.5 %; MCH 34.8 pg (27.0-33.0); MCHC 34.3 % (32.0-36.0); MCV 102 fL (80-95); MPV 8.3 fL (8.0-11.0); Monocytes % 8.4 %; Neutrophils % 65.8 %; Platelet Count 210 10^3/uL (130-400); RBC 4.28 10^6/uL (3.93-5.22); RDW 12.3 % (11.7-14.6); WBC 8.73 10^3/uL (4.4-10.8)
[2024-03-17] MEDS: Normal Saline 1,000 ML 1000 ML IV ×2 (16:16→18:55)
[2024-03-17] MEDS: Ondansetron 4 MG/2 ML VIAL IVP ×2 (16:16→21:47)
[2024-03-17] MEDS: MORPHine 4 MG/ML SYR IVP ×2 (16:16→18:55)
[2024-03-17] MEDS: Famotidine 20 MG/2 ML VIAL IVP (16:16)
[2024-03-17 16:23] LABS: ALT 61 U/L (14-59); AST 68 U/L (15-37); Albumin 3.2 g/dL (3.4-5.0); Alkaline Phosphatase 89 U/L (46-116); Anion Gap 12.2 mmol/L (3-11); BUN 4 mg/dL (7-18); Bilirubin, Total 0.69 mg/dL (0.2-1.0); CO2 23.8 mmol/L (21.0-32.0); CREATININE 0.6 mg/dL (0.55-1.02); Calcium 8.9 mg/dL (8.5-10.1); Chloride 101 mmol/L (98-107); Estimated GFR 115.57 (mL/min/1.73m2); Glucose 122 mg/dL (74-106); Lipase 50 U/L (16-77); Magnesium 1.6 mg/dL (1.8-2.4); Potassium 3.1 mmol/L (3.5-5.1); Sodium 137 mmol/L (136-145); Total Protein 6.9 g/dL (6.4-8.2)
--- NOTE | 2024-03-17 18:00 | DI.CT_ITS ---
Exam(s) CT ABDOMEN PELVIS W EXAM: CT ABDOMEN PELVIS W CLINICAL HISTORY: RUQ pain TECHNIQUE: Imaging Protocol: Axial computed tomography images with coronal and sagittal reformatted images were created and reviewed. CONTRAST MATERIAL: Intravenous: Omnipaque 350 Contrast volume:100 mL Oral: No COMPARISON: CT CT ABDOMEN PELVIS W from 10/23/2023 FINDINGS: ABDOMEN: Lung Bases: There is a small hiatal hernia. Liver: There is diffuse decreased attenuation of the liver consistent with fatty infiltration. The l iver measures 21 cm long. No measurable mass. Portal, Superior Mesenteric, and Splenic Veins: Unremarkable. Gallbladder and Biliary Tract: No radiodense calculus or dilation. Pancreas: There is a question of mild infiltration around the head of the pancreas. They have improv ed since the prior examination from 10/23/2023 but are persistent. No focal fluid collection is seen. Some degree of mild persistent acute pancreatitis should be considered. Spleen: Normal. Adrenals: No masses seen. Kidneys: Normal size, contour and axis. No radiodense stones or obstructive uropathy. No masses seen. Abdominal Aorta: Abdominal portion non-dilated. Bowel: No obstruction or bowel wall thickening. Appendix is unremarkable. Peritoneal Cavity: No ascites, collection or mesenteric inflammatory response. No free air. Lymph Nodes: Within normal limits. Bones: Within normal limits for the patient's age. Soft Tissues: Unremarkable. PELVIS: Bladder: Urinary bladder is incompletely distended limiting evaluation. Reproductive Organs: Unremarkable as visualized. Lymph Nodes: Within normal limits. Bones: Within normal limits for the patient's age. IMPRESSION: Persistent mild stranding around the pancreas. The findings have improved since the prior examinatio n from 10/23/2023. Some degree of mild acute pancreatitis should be considered. Please correlate clin ically. RADIATION DOSE DELIVERED: 1,200.56mGy.cm Total DLP DATA REPOSITORY: All CT scans at this facility are submitted to the National Radiology Data Registry (NRDR) Dose Index Registry (DIR) with the [employer] (ACR). RADIATION OPTIMIZATION: All CT scans at this facility use at least one of these dose optimization te chniques: automated exposure control; mA and/or kV adjustment per patient size (includes targeted exa ms where dose is matched to clinical indication); or iterative reconstruction.
[2024-03-17 18:55] LABS: Bilirubin Moderate (Negative); Blood Negative (Negative); Clarity Clear (Clear); Glucose Negative (Negative); Ketones 80 mg/dL (Negative); Leukocyte Esterase Negative (Negative); Nitrite Negative (Negative); Specific Gravity 1.025 (1.005-1.025); pH 6.5 (5-8)
[2024-03-17 19:05] LABS: Bacteria Few HPF (Negative); C & S Indicated? No; Crystals Negative HPF (Negative); Epithelial Cells Many HPF (Negative); Mucus Moderate (Negative); RBC 0-2 HPF (0-2)
[2024-03-17] MEDS: Omnipaque 350 MG/ML 100 ML BTL IJ (20:02)
[2024-03-17] MEDS: Normal Saline - Diluent 50 ML VIAL IJ (20:02)
--- NOTE | 2024-03-17 21:26 | DI.VRAD_ITS ---
PROCEDURE INFORMATION: Exam: CT Abdomen And Pelvis With Contrast Exam date and time: 03/17/2024 7:58 PM Age: 43 years old Clinical indication: Other: Ruq pain TECHNIQUE: Imaging protocol: Computed tomography of the abdomen and pelvis with contrast. Contrast material: OMNI 350; Contrast volume: 100 ml; Contrast route: INTRAVENOUS (IV); COMPARISON: CT ABDOMEN PELVIS W 10/23/2023 8:29 AM, CT examination of the abdomen and pelvis July 06, 2023 FINDINGS: Diaphragm: Moderate-sized hiatal hernia. Liver: Hepatomegaly.There is diffuse decrease in hepatic parenchymal density, consistent with moderate fatty infiltration. No mass. Gallbladder and biliary ducts: Gallbladder minimally distended. No calcified gallstones are wall thickening. Pancreas: There is stranding of peripancreatic fat, less prominent than seen on prior studies. No peripancreatic collections or pseudocysts. No ductal dilatation. Spleen: Normal. No splenomegaly. Adrenal glands: Normal. No mass. Kidneys and ureters: Homogeneous enhancing renal parenchyma. No hydronephrosis. Stomach and bowel: No dilated segments of small bowel or colonic dilatation. Appendix: Normal appendix. Intraperitoneal space: Unremarkable. No free air. No significant fluid collection. Vasculature: Unremarkable. No abdominal aortic aneurysm. Lymph nodes: Unremarkable. No enlarged lymph nodes. Urinary bladder: Bladder wall is minimally thickened. Attenuation in bladder lumen is higher than simple fluid and there is mild perivesical fat stranding. Reproductive: Unremarkable as visualized. Bones/joints: The spine demonstrates mild degenerative changes at multiple levels. No acute fracture. Soft tissues: Unremarkable. IMPRESSION: 1. CT findings consistent with the presence of acute pancreatitis. Correlate clinically and with appropriate laboratory studies. 2. Possible cystitis. Correlate clinically as to the need to obtain urinalysis. 3. Hiatal hernia. Dictated and Authenticated by: Ronald Eason MD. Ordering:BRENNA Tucker MD
[2024-03-17] MEDS: chlordiazePOXIDE 25 MG CAP PO (21:46)
[2024-03-17] MEDS: Ketorolac 15 MG/ML VIAL 7.5 MG IVP (21:47)
[2024-03-17 21:59] VITALS: BP 136/112; PULSE 103; TEMP 36.2; O2SAT 98
--- NOTE | 2024-03-17 23:19 | W.ED.GENAD ---
Discharge Plan Disposition Patient Disposition: Home Discharge Details Clinical Impression: Acute pancreatitis Primary Care Provider: Cam Paniagua ED Provider: Caitlin Espinal Home Meds and New Rx's Prescriptions: New chlordiazepoxide HCl 25 mg capsule 25 mg PO TID PRNQty: 8 0RF ondansetron 4 mg tablet,disintegrating 4 mg PO Q8H PRN PRN4 Days Qty: 10 0RF potassium chloride 20 mEq tablet extended release 20 meq PO DAILY Qty: 10 0RF magnesium 250 mg tablet 250 mg PO DAILY Qty: 10 0RF Continued albuterol sulfate [ProAir HFA] 8.5 GM HFA aerosol inhaler 2 puff Inhalation PRN PRN olmesartan 20 mg tablet 20 mg PO DAILY Patient Comments: TAKE ONE TABLET BY MOUTH EVERY DAY amlodipine 5 mg tablet 5 mg PO DAILY Qty: 30 0RF pantoprazole 40 mg tablet,delayed release (DR/EC) 40 mg PO DAILY Qty: 14 0RF magnesium oxide 250 mg magnesium tablet 250 mg PO DAILY Patient Comments: TAKE ONE TABLET BY MOUTH TWICE A DAY diphenhydramine HCl [Benadryl] 25 mg Capsule 25 mg PO Q6H PRN lisdexamfetamine [Vyvanse] 30 mg capsule 30 mg PO DAILY Patient Comments: TAKE ONE CAPSULE BY MOUTH EVERY DAY prochlorperazine maleate [Compazine] 10 mg tablet 10 mg PO TID PRNQty: 10 0RF magnesium 250 mg tablet 250 mg PO DAILY Qty: 10 0RF Discharge Instructions Instructions: Acute pancreatitis Additional Instructions: Cut down by 1 drink daily, you may use Librium to replace 1 drink but decreasing faster than this may cause alcohol withdrawal Clear liquid diet is much as possible, please refer to enclose packet information, Jell-O, popsicles, chicken broth Please follow-up with your primary care physician and return earlier should you have new or worsening complaints There is a prescription for Zofran as needed for nausea and vomiting HPI General Date/Time Provider Initiated Documentation: 03/17/24 15:36. HPI Narrative: 43-year-old female with history of alcoholism, hypertension, and pancreatitis presents with right upper quadrant pain which started after eating a hot dog and drinking 8 beers yesterday. She states that she has been cutting down dramatically on her alcohol consumption in fact she is down to approximately 5 shots daily. She states that secondary to persistent nausea and vomiting pain she presents today. She denies any fever or chills. She denies any diarrhea or blood in vomitus. Denies chance of . Denies any additional illicit drug use, denies chest pain or shortness of breath. Denies known sick contacts. Related Data Home Medications ?Medication ?Instructions ?Recorded ?Confirmed albuterol sulfate 90 mcg/actuation 2 puff inhalation PRN PRN 05/20/14 03/17/24 aerosol inhaler (ProAir HFA) diphenhydramine HCl 25 mg capsule 25 mg PO Q6H PRN 11/17/19 03/17/24 (Benadryl) olmesartan 20 mg tablet 20 mg PO DAILY 07/06/23 03/17/24 amlodipine 5 mg tablet 5 mg PO DAILY #30 tabs 07/10/23 03/17/24 pantoprazole 40 mg tablet,delayed 40 mg PO DAILY #14 tabs 10/23/23 03/17/24 release lisdexamfetamine 30 mg capsule 30 mg PO DAILY 12/29/23 03/17/24 (Vyvanse) magnesium 250 mg tablet 250 mg PO DAILY #10 tabs 12/29/23 03/17/24 prochlorperazine maleate 10 mg 10 mg PO TID PRN #10 tabs 12/29/23 03/17/24 tablet (Compazine) chlordiazepoxide HCl 25 mg capsule 25 mg PO TID PRN #8 caps 03/17/24 magnesium 250 mg tablet 250 mg PO DAILY #10 tabs 03/17/24 magnesium oxide 250 mg PO DAILY 03/17/24 03/17/24 ondansetron 4 mg disintegrating 4 mg PO Q8H PRN PRN 4 days #10 tabs 03/17/24 tablet potassium chloride 20 mEq 20 meq PO DAILY #10 tabs 03/17/24 tablet,extended release Previous Rx's ?Medication ?Instructions ?Recorded amlodipine 5 mg tablet 5 mg PO DAILY #30 tabs 07/10/23 pantoprazole 40 mg tablet,delayed 40 mg PO DAILY #14 tabs 10/23/23 release magnesium 250 mg tablet 250 mg PO DAILY #10 tabs 12/29/23 prochlorperazine maleate 10 mg 10 mg PO TID PRN #10 tabs 12/29/23 tablet (Compazine) chlordiazepoxide HCl 25 mg capsule 25 mg PO TID PRN #8 caps 03/17/24 magnesium 250 mg tablet 250 mg PO DAILY #10 tabs 03/17/24 ondansetron 4 mg disintegrating 4 mg PO Q8H PRN PRN 4 days #10 tabs 03/17/24 tablet potassium chloride 20 mEq 20 meq PO DAILY #10 tabs 03/17/24 tablet,extended release Allergies Allergy/AdvReac Type Severity Reaction Status Date / Time egg Allergy Intermediate Hives Unverified 03/17/24 19:18 General Stated Complaint: Abd Prob GIRMA: 3 Exam Narrative Exam Narrative: 3-year-old female presenting in acute discomfort, reproducible right upper quadrant and epigastric discomfort, no rebound or guarding, pupils equal round reactive to light and accommodation, no scleral icterus, no jaundice, no ascites palpable on abdominal exam, no CVA tenderness, no abdominal bruit or pulsatile mass, alert and oriented x 4, neurovascularly intact all 4 extremities, no pallor Course Vital Signs Vital signs: Vital Signs Temperature 36.8 C 03/17/24 15:28 Pulse 105 H 03/17/24 15:28 Respiratory Rate 14 03/17/24 15:28 Blood Pressure 133/98 H 03/17/24 15:28 Pulse Oximetry 97 03/17/24 15:28 Temperature 36.2 C L 03/17/24 21:59 Temperature Source Tympanic 03/17/24 21:59 Pulse 103 H 03/17/24 21:59 Respiratory Rate 14 03/17/24 15:28 Respiratory Effort Normal 03/17/24 15:34 Blood Pressure 136/112 H 03/17/24 21:59 Pulse Oximetry 98 03/17/24 21:59 Oxygen Delivery Method Room Air 03/17/24 21:59 Oxygen Flow Rate 0 03/17/24 21:59 Pain Level 2 03/17/24 21:59 Lab/Test Results Lab/Test Results: Laboratory Tests Range/Units 03/17/24 03/17/24 03/17/24 16:02 16:02 18:25 WBC (4.4-10.8) 10^3/uL 8.73 RBC (3.93-5.22) 10^6/uL 4.28 Hgb (11.2-15.7) g/dL 14.9 Hct (36.0-46.0) % 43.5 MCV (80-95) fL 102 H MCH (27.0-33.0) pg 34.8 H MCHC (32.0-36.0) % 34.3 RDW (11.7-14.6) % 12.3 Plt Count (130-400) 10^3/uL 210 MPV (8.0-11.0) fL 8.3 Immature Gran % % 0.7 Neutrophils % % 65.8 Lymphocytes % % 24.5 Monocytes % % 8.4 Eosinophils % % 0.3 Basophils % % 0.3 Nucleated RBC % (0.0-0.3) % 0.0 Absolute Neutrophils (1.2-6.7) 10^3/uL 5.74 Absolute Lymphocytes (1.2-3.4) 10^3/uL 2.14 Absolute Monocytes (0.1-0.8) 10^3/uL 0.73 Absolute Eosinophils (0.0-0.7) 10^3/uL 0.03 Absolute Basophils (0.0-0.2) 10^3/uL 0.03 Sodium (136-145) mmol/L 137 Potassium (3.5-5.1) mmol/L 3.1 L Chloride (98-107) mmol/L 101 Carbon Dioxide (21.0-32.0) mmol/L 23.8 Anion Gap (3-11) mmol/L 12.2 H BUN (7-18) mg/dL 4 L Creatinine (0.55-1.02) mg/dL 0.6 Est GFR (CKD-EPI 2020) (mL/min/1.73m2) 115.57 Glucose (74-106) mg/dL 122 H Calcium (8.5-10.1) mg/dL 8.9 Magnesium (1.8-2.4) mg/dL 1.6 L Cancelled Total Bilirubin (0.2-1.0) mg/dL 0.69 AST (15-37) U/L 68 H ALT (14-59) U/L 61 H Alkaline Phosphatase (46-116) U/L 89 Total Protein (6.4-8.2) g/dL 6.9 Albumin (3.4-5.0) g/dL 3.2 L Lipase (16-77) U/L 50 Urine Color (Yellow) Yellow Urine Clarity (Clear) Clear Urine pH (5-8) 6.5 Ur Specific [place] (1.005-1.025) 1.025 Urine Protein (Neg-Trace) mg/dL 30 H Urine Ketones (Negative) mg/dL 80 H Urine Blood (Negative) Negative Urine Nitrite (Negative) Negative Urine Bilirubin (Negative) Moderate H Urine Urobilinogen (Up to 0.2) mg/dL 1.0 H Ur Leukocyte Esterase (Negative) Negative Urine RBC (0-2) HPF 0-2 Urine WBC (0-5) HPF 3-5 Ur Epithelial Cells (Negative) HPF Many Urine Crystals (Negative) HPF Negative Urine Bacteria (Negative) HPF Few Urine Mucus (Negative) Moderate Ur Culture Indicated? No Urine Glucose (Negative) mg/dL Negative POC- Test(urine) Negative Medical Decision Making 43-year-old female presenting with acute right upper quadrant abdominal pain. Diagnostic labs do not show evidence of acute abnormality ultrasound of right upper quadrant does not show evidence of acute abnormality however CT shows evidence of pancreatitis, if patient does have chronic pancreatitis she would not necessarily develop an elevation in her lipase and as she is able to tolerate p.o. and feeling marked improvement and has received 2 L of fluid I think she stable for discharge home with clear liquid diet. As she is encouraged to cut down on her alcohol consumption I did give her several tablets of Librium she is aware that she should not cut down by more than 1 drink and she can replace a drink with the Librium as tolerated. She has a good support system and is supplied with cane and recovery's information so she may follow-up. Discharged home in stable condition with stable vitals, able to tolerate p.o., antiemetics. Return precautions reviewed. Patient was supplemented with magnesium for magnesium of 1.6 and potassium for potassium of 3.1. Patient does have mild elevation in her LFTs appears to be chronic and patient is obviously encouraged to engage in alcohol cessation Quality:SDOH Health Related Social Needs: No Data to Display PFSH All Active Problems (Updated 03/17/24 @ 21:40 by STEVEN Durant) No-show for appointment (Acute) Left cuboid fracture (Acute ~09/27/23) Insomnia (Acute) Alcoholism (Acute) Essential hypertension (Acute) Acute pancreatitis (Acute) Medical History (Updated 03/17/24 @ 21:40 by STEVEN Durant) Conductive hearing loss (10/20/13) Social History Smoking/Tobacco Use Status: Current every day Tobacco Type: e-cigarettes Smoking risk assessment performed?: Yes Alcohol Intake: current Alcohol Intake frequency: 0-2 drinks per day Alcohol type: beer and hard liquor Drug use: Daily Substance use type: marijuana Housing: house Do you feel safe at home: Yes Do you feel safe in your relationship?: Yes
== END 2024-03-17 22:02 | disposition home or self-care (01) ==
PROVIDERS: Emergency Provider Physician Assistant; PCP Physician Assistant
DX: K85.90 Acute pancreatitis without necrosis or infection, unspecified (principal)
CPT/HCPCS: 80053; 81025; 83690; 87637; 93005; 96361; 96374; 96375; 96376; 99285; 74177; 76705; 81003; 81015; 83735; 85025; 93010; 99284; J1885; J2270; J2405; J3490